=== PATIENT | female | born 1950 | race African-American/Black ===

== ENCOUNTER 2016-10-12 20:43 | Emergency (ER) | payer OTHER ==
[~2016-10-12] VITALS: Ht 162.6 cm; Wt 51.7 kg
[~2016-10-12 20:43] MED LIST: AMLO10TA2 PO; LEV250T PO; MULTCAP45 PO; OMEP20CA5 PO; PRED-188 PO; PRO25I PO; Pantoprazole Sodium Sesquihydr PO; TRIA37.577 PO
[2016-10-12 22:37] LABS: Basophils # (auto) 0 uL; Basophils % (auto) 0.4 % (0.0-2.0); DEFINITIVE VIEW TRANSMISSION; Eosinophils # (auto) 0.1 uL; Eosinophils % (auto) 0.9 % (0.0-7.0); Hematocrit 30.5 % (36.0-46.0); Hemoglobin 9.8 g/dL (12.2-16.2); Mean Corpuscular Hemoglobin 25.7 pg (28.0-32.0); Mean Corpuscular Volume 80.2 fL (80.0-100.0); Monocytes # (auto) 0.5 uL; Monocytes % (auto) 5.2 % (0.0-12.0); Neutrophils # (auto) 8.1 uL; Neutrophils % (auto) 83.5 % (37.0-80.0); Platelet Count (auto) 539 10^3/uL (140-450); White Blood Cell 9.7 10^3/uL (4.4-10.8)
[2016-10-12 22:45] LABS: Red Cell Distribution Width 21.4 % (11.6-16.0)
[2016-10-12 22:49] LABS: Albumin 1.9 g/dL (3.4-5.0); BUN/Creatinine Ratio 16.7; Bilirubin, Total 0.2 mg/dL (0.2-1.0); Magnesium 1.8 mg/dL (1.6-2.6); Potassium 4.2 mmol/L (3.5-5.1); Total Protein 7.4 g/dL (6.4-8.2)
[2016-10-12 22:54] LABS: B-Type Natriuretic Peptide 1393.16 pg/mL (0-100); Temperature: 23.5 C (20.0-25.0)
[2016-10-12] MEDS: FUROSEMIDE 20 MG/2 ML VIAL IV ONE (23:55)
[2016-10-13] MEDS: FUROSEMIDE 20 MG/2 ML VIAL IV ONE (00:10)
[2016-10-13 00:22] LABS: Anisocytosis Slight; Platelet Estimate Increased
[2016-10-13 00:59] VITALS: BP 123/76
== END 2016-10-13 01:04 | disposition home or self-care (01) ==
LOC: ER 22:00
DX: I11.0 Hypertensive heart disease with heart failure (principal); I50.9 Heart failure, unspecified; J84.10 Pulmonary fibrosis, unspecified; J44.9 Chronic obstructive pulmonary disease, unspecified; E11.9 Type 2 diabetes mellitus without complications; Z90.710 Acquired absence of both cervix and uterus
CPT/HCPCS: 36415; 71010; 80053; 83735; 83880; 84484; 85025; 93005; 94761

== ENCOUNTER 2016-10-22 17:45 | Inpatient (IN) | payer OTHER ==
[~2016-10-22] VITALS: Ht 162.6 cm; Wt 55.2 kg
[2016-10-22] MEDS ORDERED: MORPHINE SULF INJ 2 MG/ML SYRINGE 1ML IV PRN (18:15)
[2016-10-22] MEDS ORDERED: NITROGLYCERIN 0.4 MG SL TAB SL PRN (18:15)
[2016-10-22] MEDS ORDERED: DEXTROSE (50%) 50ML SYRG IV PRN (19:00)
[2016-10-22 19:13] VITALS: BP 130/87
[2016-10-22 20:00] VITALS: BP 117/60
[2016-10-22 22:00] VITALS: BP 117/70
[2016-10-22] MEDS: ACCU-CHEK COMFORT CURVE STRIP VI SCH (22:20)
[2016-10-22] MEDS: InsuLIN REG 1unit/0.01ml Soln (100units/ml) SC SCH (22:43)
[2016-10-22] MEDS ORDERED: TEMAZEPAM 15 MG CAP PO PRN (23:00)
[2016-10-23] VITALS (7 sets, daily range): BP systolic 116–132; BP diastolic 68–81
[2016-10-23] MEDS ORDERED: IPRATROPIUM BROM 0.5 MG/2.5ML INH SOL NEB ONE ×2 (01:00→04:00)
[2016-10-23] MEDS ORDERED: ALBUTEROL SULF 2.5 MG/0.5ML(0.5%) NEB SOLN NEB ONE ×2 (01:00→04:00)
[2016-10-23] MEDS ORDERED: IPRATROPIUM BROM 0.5 MG/2.5ML INH SOL NEB SCH ×3 (06:00→10:00)
[2016-10-23] MEDS ORDERED: ALBUTEROL SULF 2.5 MG/0.5ML(0.5%) NEB SOLN NEB SCH ×3 (06:00→10:00)
[2016-10-23] MEDS: ALBUTEROL SULF 2.5 MG/0.5ML(0.5%) NEB SOLN NEB SCH ×4 (06:11→19:35)
[2016-10-23] MEDS: IPRATROPIUM BROM 0.5 MG/2.5ML INH SOL NEB SCH ×4 (06:11→19:34)
[2016-10-23 06:14] LABS: Basophils # (auto) 0 uL; Basophils % (auto) 0.1 % (0.0-2.0); DEFINITIVE VIEW TRANSMISSION; Eosinophils # (auto) 0 uL; Hematocrit 30.5 % (36.0-46.0); Hemoglobin 9.9 g/dL (12.2-16.2); Lymphocytes % (auto) 12.2 % (10.0-50.0); Mean Corpuscular Hgb Conc. 32.3 g/dL (32.0-36.0); Mean Corpuscular Volume 80.3 fL (80.0-100.0); Mean Platelet Volume 7.1 fL (7.4-10.4); Monocytes # (auto) 0.6 uL; Neutrophils # (auto) 6.6 uL; Neutrophils % (auto) 80.7 % (37.0-80.0); Platelet Count (auto) 654 10^3/uL (140-450); White Blood Cell 8.2 10^3/uL (4.4-10.8)
[2016-10-23 06:31] LABS: Red Cell Distribution Width 20.5 % (11.6-16.0)
[2016-10-23] MEDS: InsuLIN REG 1unit/0.01ml Soln (100units/ml) SC SCH ×4 (06:31→22:01)
[2016-10-23] MEDS: ACCU-CHEK COMFORT CURVE STRIP VI SCH ×4 (06:31→21:20)
[2016-10-23 06:38] LABS: BUN/Creatinine Ratio 19.3; Calcium 8.1 mg/dL (8.5-10.1); Potassium 3.9 mmol/L (3.5-5.1)
[2016-10-23] MEDS: HYDROcodone-ACET 7.5/325MG TAB PO PRN ×3 (06:52→22:37)
[2016-10-23 09:16] LABS: Anisocytosis Slight; Hypochromia Slight; Platelet Estimate Increased
[2016-10-23 09:17] LABS: Giant Platelets Few
[2016-10-23] MEDS ORDERED: LEVOFLOXACIN 500MG 100 ML IV SCH (10:00)
[2016-10-23] MEDS: AZITHROMYCIN 500MG/D5W 250ML 250 ML IV SCH (11:45)
[2016-10-23] MEDS ORDERED: MORPHINE SULF INJ 2 MG/ML SYRINGE 1ML IV PRN (12:15)
[2016-10-23] MEDS ORDERED: ONDANSETRON HCL 4 MG/2 ML VIAL IV PRN (12:15)
[2016-10-23] MEDS ORDERED: predniSONE 20 MG TAB PO ONE (12:15)
[2016-10-23] MEDS ORDERED: cefTRIAXone 1GM/50ML D5W 50 ML IV ONE (12:15)
[2016-10-23] MEDS ORDERED: PRED1PAK9 PO (18:13)
[2016-10-23] MEDS: TEMAZEPAM 15 MG CAP PO PRN (23:09)
[2016-10-24] MEDS: ALBUTEROL SULF 2.5 MG/0.5ML(0.5%) NEB SOLN NEB SCH ×5 (02:27→19:31)
[2016-10-24] MEDS: IPRATROPIUM BROM 0.5 MG/2.5ML INH SOL NEB SCH ×5 (02:27→19:31)
[2016-10-24 05:00] VITALS: BP 118/76
[2016-10-24] MEDS: InsuLIN REG 1unit/0.01ml Soln (100units/ml) SC SCH ×4 (06:21→21:22)
[2016-10-24] MEDS: ACCU-CHEK COMFORT CURVE STRIP VI SCH ×4 (06:21→21:17)
[2016-10-24 08:00] VITALS: BP 140/93
[2016-10-24 09:00] VITALS: BP 140/93
[2016-10-24] MEDS: cefTRIAXone 1GM/50ML D5W 50 ML IV SCH (10:16)
[2016-10-24] MEDS: AZITHROMYCIN 500MG/D5W 250ML 250 ML IV SCH (10:17)
[2016-10-24] MEDS: predniSONE 20 MG TAB PO SCH (10:17)
[2016-10-24 12:53] VITALS: BP 138/87
[2016-10-24 17:00] VITALS: BP 154/96
[2016-10-24 22:00] VITALS: BP 138/74
[2016-10-24] MEDS: HYDROcodone-ACET 7.5/325MG TAB PO PRN (22:52)
[2016-10-24] MEDS: TEMAZEPAM 15 MG CAP PO PRN (23:49)
[2016-10-25 04:55] VITALS: BP 140/87
[2016-10-25] MEDS: IPRATROPIUM BROM 0.5 MG/2.5ML INH SOL NEB SCH ×3 (06:20→15:07)
[2016-10-25] MEDS: ALBUTEROL SULF 2.5 MG/0.5ML(0.5%) NEB SOLN NEB SCH ×3 (06:20→15:07)
[2016-10-25] MEDS: ACCU-CHEK COMFORT CURVE STRIP VI SCH ×2 (06:29→11:30)
[2016-10-25] MEDS: InsuLIN REG 1unit/0.01ml Soln (100units/ml) SC SCH ×2 (06:30→11:30)
[2016-10-25 09:00] VITALS: BP 136/87
[2016-10-25] MEDS: predniSONE 20 MG TAB PO SCH (09:27)
[2016-10-25] MEDS: cefTRIAXone 1GM/50ML D5W 50 ML IV SCH (09:27)
[2016-10-25] MEDS ORDERED: AZITHROMYCIN 250 MG TAB PO SCH (10:00)
[2016-10-25 13:40] VITALS: BP 135/79
[2016-10-25 14:34] VITALS: BP 136/87
== END 2016-10-25 16:05 | disposition home or self-care (01) | DRG 190 ==
LOC: EAST 17:45 → TELE-WESTW 20:15
PROVIDERS: ADMIT Family Medicine; ATTEND Internal Medicine
DX: J44.0 Chronic obstructive pulmonary disease with (acute) lower respiratory infection (principal); J96.20 Acute and chronic respiratory failure, unspecified whether with hypoxia or hypercapnia; E43 Unspecified severe protein-calorie malnutrition; J18.9 Pneumonia, unspecified organism; J44.1 Chronic obstructive pulmonary disease with (acute) exacerbation; E11.9 Type 2 diabetes mellitus without complications; J84.10 Pulmonary fibrosis, unspecified; Z68.20 Body mass index [BMI] 20.0-20.9, adult
CPT/HCPCS: 36415; 71010; 80048; 82962; 83036; 85025; 94640; 97110; 97116; 97530; J0696; J1815; J1956

== ENCOUNTER 2017-01-08 11:38 | Inpatient (IN) | payer OTHER ==
[~2017-01-08] VITALS: Ht 162.6 cm; Wt 42.5 kg
[~2017-01-08 11:38] MED LIST changes: -OMEP20CA5 PO; +OMEP20CA74 PO; -PRED-188 PO; +PRED1PAK9 PO
[2017-01-08 11:53] VITALS: BP 130/83
[2017-01-08] MEDS: BOOST PLUS 8 ounce PO SCH ×2 (12:00→18:08)
[2017-01-08] MEDS ORDERED: HCTZ 25 MG TAB PO ONE (12:00)
[2017-01-08] MEDS ORDERED: DEXTROSE (50%) 50ML SYRG IV PRN (12:00)
[2017-01-08] MEDS ORDERED: POTASSIUM CHL 10 Meq TABLET PO ONE (12:00)
[2017-01-08] MEDS: PANTOPRAZOLE 40 MG TAB PO SCH (13:27)
[2017-01-08] MEDS: MULTIPLE VITAMIN TAB PO SCH (13:27)
[2017-01-08] MEDS: ALBUTEROL SULF 2.5 MG/0.5ML(0.5%) NEB SOLN NEB SCH ×3 (14:35→23:00)
[2017-01-08] MEDS: IPRATROPIUM BROM 0.5 MG/2.5ML INH SOL NEB SCH ×3 (14:35→23:00)
[2017-01-08] MEDS: methylPREDNISolone SOD SUCC 40 MG/ML VL IV SCH ×2 (16:18→21:59)
[2017-01-08] MEDS: InsuLIN REG 1unit/0.01ml Soln (100units/ml) SC SCH ×2 (17:00→22:00)
[2017-01-08] MEDS: ACCU-CHEK COMFORT CURVE STRIP VI SCH ×2 (17:00→22:02)
[2017-01-08] MEDS: DOXYCYCLINE 100 MG TAB/CAP PO SCH (21:58)
[2017-01-08 22:00] VITALS: BP 115/66
[2017-01-08 22:58] LABS: Urine RBC None Seen /hpf (0 - 4)
[2017-01-08 23:06] LABS: Urine Bilirubin Negative (Negative); Urine Blood Negative /uL (Negative); Urine Color Yellow (Yellow); Urine Glucose Normal (Normal); Urine Hyaline Cast MOD /lpf (0 - 2); Urine Ketone Negative (Negative); Urine Mucus FEW (None Seen); Urine Nitrite Negative (Negative); Urine Squamous Epithelial Cell FEW /hpf (<5); Urine Urobilinogen Normal (Negative); Urine pH 5.5 (5.0-8.0)
[2017-01-08] MEDS: ZOLPIDEM TARTRATE 5 MG TAB PO PRN (23:06)
[2017-01-08] MEDS: HYDROcodone-ACET 5/325MG TAB PO PRN (23:06)
[2017-01-08 23:39] VITALS: BP 115/66
[2017-01-09 05:30] VITALS: BP 126/80
[2017-01-09] MEDS: ACCU-CHEK COMFORT CURVE STRIP VI SCH ×4 (06:22→22:08)
[2017-01-09] MEDS: InsuLIN REG 1unit/0.01ml Soln (100units/ml) SC SCH ×4 (06:22→22:00)
[2017-01-09] MEDS: methylPREDNISolone SOD SUCC 40 MG/ML VL IV SCH (06:22)
[2017-01-09 06:36] LABS: BUN/Creatinine Ratio 26.4; Calcium 7.9 mg/dL (8.5-10.1); Potassium 5.1 mmol/L (3.5-5.1)
[2017-01-09 06:48] LABS: B-Type Natriuretic Peptide 1374.48 pg/mL (0-100)
[2017-01-09 06:59] LABS: Temperature: 22.9 C (20.0-25.0)
[2017-01-09 07:13] LABS: Basophils # (auto) 0 uL; Basophils % (auto) 0.1 % (0.0-2.0); DEFINITIVE Y; Eosinophils # (auto) 0 uL; Hematocrit 33.9 % (36.0-46.0); Hemoglobin 10.6 g/dL (12.2-16.2); Lymphocytes # (auto) 0.4 uL; Lymphocytes % (auto) 3.6 % (10.0-50.0); Mean Corpuscular Hemoglobin 25.3 pg (28.0-32.0); Mean Corpuscular Hgb Conc. 31.3 g/dL (32.0-36.0); Mean Corpuscular Volume 80.8 fL (80.0-100.0); Mean Platelet Volume 7.4 fL (7.4-10.4); Monocytes # (auto) 0.2 uL; Monocytes % (auto) 1.5 % (0.0-12.0); Neutrophils # (auto) 11.7 uL; Neutrophils % (auto) 94.8 % (37.0-80.0); Platelet Count (auto) 566 10^3/uL (140-450); Red Cell Distribution Width 19.2 % (11.6-16.0); White Blood Cell 12.3 10^3/uL (4.4-10.8)
[2017-01-09] MEDS: IPRATROPIUM BROM 0.5 MG/2.5ML INH SOL NEB SCH ×5 (07:16→22:38)
[2017-01-09] MEDS: ALBUTEROL SULF 2.5 MG/0.5ML(0.5%) NEB SOLN NEB SCH ×5 (07:16→22:38)
[2017-01-09] MEDS: BOOST PLUS 8 ounce PO SCH ×3 (07:41→18:12)
[2017-01-09 09:00] VITALS: BP 144/97
[2017-01-09] MEDS ORDERED: POTASSIUM CHL 10 Meq TABLET PO SCH (10:00)
[2017-01-09] MEDS ORDERED: HCTZ 25 MG TAB PO SCH (10:00)
[2017-01-09] MEDS: DOXYCYCLINE 100 MG TAB/CAP PO SCH ×2 (10:46→22:09)
[2017-01-09] MEDS: MULTIPLE VITAMIN TAB PO SCH (10:48)
[2017-01-09] MEDS: PANTOPRAZOLE 40 MG TAB PO SCH (10:48)
[2017-01-09] MEDS ORDERED: FUROSEMIDE 40 MG/4 ML VIAL IV ONE (12:15)
[2017-01-09] MEDS ORDERED: POTASSIUM CHL 20 Meq TABLET PO ONE (12:15)
[2017-01-09 13:00] VITALS: BP 128/84
[2017-01-09 17:00] VITALS: BP 119/71
[2017-01-09] MEDS ORDERED: FER325T PO (18:57)
[2017-01-09] MEDS ORDERED: OXYB15TA12 PO (18:57)
[2017-01-09] MEDS ORDERED: TEMA30CA PO (18:57)
[2017-01-09 22:00] VITALS: BP 133/79
[2017-01-09] MEDS ORDERED: methylPREDNISolone SOD SUCC 40 MG/ML VL IV SCH (22:00)
[2017-01-09] MEDS: ZOLPIDEM TARTRATE 5 MG TAB PO PRN (22:10)
[2017-01-09] MEDS: HYDROcodone-ACET 5/325MG TAB PO PRN (22:11)
[2017-01-10] MEDS: IPRATROPIUM BROM 0.5 MG/2.5ML INH SOL NEB SCH ×5 (02:34→18:41)
[2017-01-10] MEDS: ALBUTEROL SULF 2.5 MG/0.5ML(0.5%) NEB SOLN NEB SCH ×5 (02:34→18:41)
[2017-01-10 05:00] VITALS: BP 145/90
[2017-01-10] MEDS: InsuLIN REG 1unit/0.01ml Soln (100units/ml) SC SCH ×4 (06:18→22:00)
[2017-01-10] MEDS: ACCU-CHEK COMFORT CURVE STRIP VI SCH ×4 (06:18→22:27)
[2017-01-10 06:45] LABS: Calcium 8.3 mg/dL (8.5-10.1); Magnesium 1.9 mg/dL (1.6-2.6); Potassium 4.7 mmol/L (3.5-5.1)
[2017-01-10 07:00] LABS: BUN/Creatinine Ratio 24.3
[2017-01-10] MEDS: BOOST PLUS 8 ounce PO SCH ×3 (07:20→17:05)
[2017-01-10 09:00] VITALS: BP 138/59
[2017-01-10] MEDS: FUROSEMIDE 40 MG/4 ML VIAL IV SCH (10:42)
[2017-01-10] MEDS: POTASSIUM CHL 20 Meq TABLET PO SCH (10:44)
[2017-01-10] MEDS: MULTIPLE VITAMIN TAB PO SCH (10:44)
[2017-01-10] MEDS ORDERED: predniSONE 20 MG TAB PO ONE (10:45)
[2017-01-10] MEDS: PANTOPRAZOLE 40 MG TAB PO SCH (10:45)
[2017-01-10] MEDS: DOXYCYCLINE 100 MG TAB/CAP PO SCH ×2 (10:45→22:25)
[2017-01-10] MEDS: MAGNESIUM SULFATE 1GM/100ML 100 ML IV SCH ×2 (12:10→12:26)
[2017-01-10 13:00] VITALS: BP 137/93
[2017-01-10 17:00] VITALS: BP 113/71
[2017-01-10 20:00] VITALS: BP 124/82
[2017-01-10 22:00] VITALS: BP 124/82
[2017-01-10] MEDS: HYDROcodone-ACET 5/325MG TAB PO PRN (22:40)
[2017-01-10] MEDS: ZOLPIDEM TARTRATE 5 MG TAB PO PRN (22:40)
[2017-01-11] MEDS: ALBUTEROL SULF 2.5 MG/0.5ML(0.5%) NEB SOLN NEB SCH ×4 (02:40→14:52)
[2017-01-11] MEDS: IPRATROPIUM BROM 0.5 MG/2.5ML INH SOL NEB SCH ×4 (02:40→14:52)
[2017-01-11 05:00] VITALS: BP 127/81
[2017-01-11] MEDS: InsuLIN REG 1unit/0.01ml Soln (100units/ml) SC SCH ×3 (06:55→17:00)
[2017-01-11] MEDS: ACCU-CHEK COMFORT CURVE STRIP VI SCH ×3 (06:56→17:00)
[2017-01-11 08:00] VITALS: BP 131/80
[2017-01-11 08:42] VITALS: BP 131/80
[2017-01-11] MEDS: BOOST PLUS 8 ounce PO SCH ×3 (09:24→18:52)
[2017-01-11] MEDS ORDERED: predniSONE 20 MG TAB PO SCH (10:00)
[2017-01-11] MEDS: PANTOPRAZOLE 40 MG TAB PO SCH (10:53)
[2017-01-11] MEDS: POTASSIUM CHL 20 Meq TABLET PO SCH (10:53)
[2017-01-11] MEDS: DOXYCYCLINE 100 MG TAB/CAP PO SCH (10:53)
[2017-01-11] MEDS: FUROSEMIDE 40 MG/4 ML VIAL IV SCH (10:53)
[2017-01-11] MEDS: MULTIPLE VITAMIN TAB PO SCH (10:54)
[2017-01-11 16:25] LABS: Allen Test Yes; Base Excess 11.7 mmol/L (-2.0-2.0); Blood 02Sat 73.2 % (96-100); Blood COHb 0.7 % (0.5-1.5); Blood MetHb 0.3 % (0.0-1.5); HCO3 35.9 mmol/L (22-26.0); HHb 26.5 % (0.0-5.0); MODE ROOM AIR; O2Hb 72.5 % (94.0-97.0); PCO2 44.8 mmHg (35.0-45.0); PCO2(T) 44.8 mmHg (35.0-45.0); PO2 37.8 mmHg (80.0-100.0); PO2(T) 37.8 mmHg (80.0-100.0); Room 0216T; Sample Type Arterial; pH 7.522 (7.350-7.450)
== END 2017-01-11 19:10 | disposition home or self-care (01) | DRG 291 ==
LOC: TELE-E-ADS 11:38 → TELE-CENTR 18:57
PROVIDERS: ADMIT Internal Medicine; ATTEND Internal Medicine
DX: I11.0 Hypertensive heart disease with heart failure (principal); E43 Unspecified severe protein-calorie malnutrition; J96.20 Acute and chronic respiratory failure, unspecified whether with hypoxia or hypercapnia; J18.9 Pneumonia, unspecified organism; Z68.1 Body mass index [BMI] 19.9 or less, adult; J84.10 Pulmonary fibrosis, unspecified; I50.33 Acute on chronic diastolic (congestive) heart failure; Z87.891 Personal history of nicotine dependence
CPT/HCPCS: 36415; 36600; 71010; 80048; 81001; 82805; 82962; 83735; 83880; 85025; 94640; 97116; 97163; 97530; J1815

== ENCOUNTER 2017-01-20 03:45 | Inpatient (IN) | payer OTHER ==
[~2017-01-20] VITALS: Ht 154.9 cm; Wt 66.0 kg
[~2017-01-20 03:45] MED LIST changes: +FER325T PO; +OXYB15TA12 PO; +TEMA30CA PO
[2017-01-20] MEDS ORDERED: methylPREDNISolone SOD SUCC 125 MG/2 ML VL IV ONE (04:45)
[2017-01-20 05:51] LABS: Allen Test Yes; Blood 02Sat 97.1 % (96-100); Blood COHb 0.3 % (0.5-1.5); Blood MetHb 0.3 % (0.0-1.5); HHb 2.9 % (0.0-5.0); MODE MASK - SIMPLE; O2Hb 96.5 % (94.0-97.0); PCO2 38.3 mmHg (35.0-45.0); PCO2(T) 38.3 mmHg (35.0-45.0); PO2 105.7 mmHg (80.0-100.0); PO2(T) 105.7 mmHg (80.0-100.0); Sample Type Arterial; pH 7.449 (7.350-7.450)
[2017-01-20] MEDS ORDERED: ALBUTEROL SULF 2.5 MG/0.5ML(0.5%) NEB SOLN NEB ONE (07:00)
[2017-01-20] MEDS ORDERED: SODIUM CHLORIDE 0.9% 1,000 ML IV ONE (07:00)
[2017-01-20] MEDS ORDERED: IPRATROPIUM BROM 0.5 MG/2.5ML INH SOL NEB ONE (07:00)
[2017-01-20 07:16] LABS: Basophils # (auto) 0 uL; Basophils % (auto) 0.2 % (0.0-2.0); CONDITION Y; DEFINITIVE SEE PRINTOUT; Eosinophils # (auto) 0.1 uL; Eosinophils % (auto) 0.4 % (0.0-7.0); Hemoglobin 11.3 g/dL (12.2-16.2); Lymphocytes # (auto) 1.4 uL; Lymphocytes % (auto) 8.4 % (10.0-50.0); Mean Corpuscular Hemoglobin 25.2 pg (28.0-32.0); Mean Corpuscular Hgb Conc. 32.3 g/dL (32.0-36.0); Mean Corpuscular Volume 77.9 fL (80.0-100.0); Mean Platelet Volume 7.5 fL (7.4-10.4); Monocytes # (auto) 0.8 uL; Monocytes % (auto) 5.1 % (0.0-12.0); Neutrophils # (auto) 13.9 uL; Neutrophils % (auto) 85.9 % (37.0-80.0); Platelet Count (auto) 620 10^3/uL (140-450); Red Cell Distribution Width 18.9 % (11.6-16.0); White Blood Cell 16.1 10^3/uL (4.4-10.8)
[2017-01-20 07:38] LABS: Albumin 2.4 g/dL (3.4-5.0); BUN/Creatinine Ratio 16.1; Calcium 8.4 mg/dL (8.5-10.1)
[2017-01-20 07:41] LABS: Bilirubin, Total 0.2 mg/dL (0.2-1.0); Total Protein 7.4 g/dL (6.4-8.2)
[2017-01-20 07:42] LABS: Magnesium 1.8 mg/dL (1.6-2.6); Potassium 4.1 mmol/L (3.5-5.1)
[2017-01-20] MEDS ORDERED: DEXTROSE (50%) 50ML SYRG IV PRN (15:45)
[2017-01-20] MEDS ORDERED: PROMETHAZINE HCL 25 MG/ML 1ML IV PRN (15:45)
[2017-01-20] MEDS ORDERED: ACETAMINOPHEN 500 MG TAB PO PRN (15:45)
[2017-01-20] MEDS ORDERED: TEMAZEPAM 15 MG CAP PO PRN (15:45)
[2017-01-20] MEDS ORDERED: HYDROcodone-ACET 5/325MG TAB PO PRN (15:45)
[2017-01-20] MEDS ORDERED: NITROGLYCERIN 0.4 MG SL TAB SL PRN (15:45)
[2017-01-20] MEDS ORDERED: MORPHINE SULF INJ 2 MG/ML SYRINGE 1ML IV PRN ×2 (15:45)
[2017-01-20] MEDS ORDERED: LORazepam 0.5 MG TAB PO PRN (15:45)
[2017-01-20] MEDS ORDERED: ALBUTEROL SULF 2.5 MG/0.5ML(0.5%) NEB SOLN NEB PRN (15:45)
[2017-01-20] MEDS ORDERED: LACTULOSE 20Gm/30ML SOLN PO PRN (15:45)
[2017-01-20 16:00] VITALS: BP 126/80
[2017-01-20] MEDS: ACCU-CHEK COMFORT CURVE STRIP VI SCH ×2 (17:13→22:08)
[2017-01-20] MEDS: SODIUM CHLORIDE 0.9% 1,000 ML IV SCH (17:13)
[2017-01-20] MEDS: InsuLIN REG 1unit/0.01ml Soln (100units/ml) SC SCH ×2 (17:17→22:00)
[2017-01-20] MEDS: methylPREDNISolone SOD SUCC 40 MG/ML VL IV SCH (18:00)
[2017-01-20] MEDS: OXYBUTYNIN CHL 5 MG TAB PO SCH (18:00)
[2017-01-20 18:10] VITALS: BP 131/81
[2017-01-20] MEDS: IPRATROPIUM BROM 0.5 MG/2.5ML INH SOL NEB SCH (20:41)
[2017-01-20] MEDS: ALBUTEROL SULF 2.5 MG/0.5ML(0.5%) NEB SOLN NEB SCH (20:41)
[2017-01-20 21:43] VITALS: BP 135/80
[2017-01-20] MEDS: ATORVASTATIN 20 MG TAB PO SCH (21:57)
[2017-01-20] MEDS: METOPROLOL TARTRATE 25 MG TAB PO SCH (21:57)
[2017-01-20] MEDS ORDERED: TEMAZEPAM 15 MG PO SCH (22:00)
[2017-01-21] VITALS (18 sets, daily range): BP systolic 92–126; BP diastolic 58–89
[2017-01-21] MEDS: methylPREDNISolone SOD SUCC 40 MG/ML VL IV SCH ×4 (00:07→20:25)
[2017-01-21] MEDS: IPRATROPIUM BROM 0.5 MG/2.5ML INH SOL NEB SCH ×4 (00:49→18:41)
[2017-01-21] MEDS: ALBUTEROL SULF 2.5 MG/0.5ML(0.5%) NEB SOLN NEB SCH ×4 (00:49→18:41)
[2017-01-21] MEDS: SODIUM CHLORIDE 0.9% 1,000 ML IV SCH ×3 (06:10→15:54)
[2017-01-21 06:12] LABS: Basophils # (auto) 0 uL; CONDITION Y; DEFINITIVE SEE PRINTOUT; Eosinophils # (auto) 0 uL; Hematocrit 32.6 % (36.0-46.0); Hemoglobin 10.4 g/dL (12.2-16.2); Lymphocytes # (auto) 0.6 uL; Lymphocytes % (auto) 5.1 % (10.0-50.0); Mean Corpuscular Hemoglobin 25.5 pg (28.0-32.0); Mean Corpuscular Volume 79.7 fL (80.0-100.0); Mean Platelet Volume 7.5 fL (7.4-10.4); Monocytes # (auto) 0.4 uL; Monocytes % (auto) 2.8 % (0.0-12.0); Neutrophils # (auto) 11.4 uL; Neutrophils % (auto) 92.1 % (37.0-80.0); Platelet Count (auto) 577 10^3/uL (140-450); Red Cell Distribution Width 19.2 % (11.6-16.0); White Blood Cell 12.4 10^3/uL (4.4-10.8)
[2017-01-21] MEDS: InsuLIN REG 1unit/0.01ml Soln (100units/ml) SC SCH ×4 (06:33→22:00)
[2017-01-21] MEDS: ACCU-CHEK COMFORT CURVE STRIP VI SCH ×4 (06:33→21:33)
[2017-01-21 06:44] LABS: Albumin 2.3 g/dL (3.4-5.0); BUN/Creatinine Ratio 20.3; Bilirubin, Total 0.2 mg/dL (0.2-1.0); Calcium 8.2 mg/dL (8.5-10.1); Potassium 4.4 mmol/L (3.5-5.1)
[2017-01-21] MEDS: OXYBUTYNIN CHL 5 MG TAB PO SCH (08:14)
[2017-01-21] MEDS: cefTRIAXone 1GM/50ML D5W 50 ML IV SCH (09:57)
[2017-01-21] MEDS: ENOXAPARIN SOD 40 MG/0.4 ML SYRINGE SC SCH (09:58)
[2017-01-21] MEDS ORDERED: NITROGLYCERIN 0.2MG/HR TOPICAL PATCH TD SCH (10:00)
[2017-01-21] MEDS ORDERED: amLODIPine BESYLATE 5 MG TAB PO SCH (10:00)
[2017-01-21] MEDS: FERROUS SULFATE 325 MG TAB PO SCH (10:00)
[2017-01-21] MEDS ORDERED: AZITHROMYCIN 500MG/D5W 250ML 250 ML IV SCH (10:00)
[2017-01-21] MEDS ORDERED: PATIENTS OWN MEDICATION (Amlodipine Besylate 10 MG) PO SCH (10:00)
[2017-01-21] MEDS ORDERED: PATIENTS OWN MEDICATION (Multiple Vitamin (Multivitamins) 1 CAP) PO SCH (10:00)
[2017-01-21] MEDS ORDERED: MULTIPLE VITAMIN TAB PO SCH (10:00)
[2017-01-21] MEDS ORDERED: PATIENTS OWN MEDICATION ([Pantoprazole Sodium Sesquihydr] (Protonix Tablet) 40 MG) PO SCH (10:00)
[2017-01-21] MEDS ORDERED: PANTOPRAZOLE 40 MG TAB PO SCH (10:00)
[2017-01-21] MEDS ORDERED: TRIAMTERENE/HCTZ 37.5/25 MG CAP PO SCH (10:00)
[2017-01-21] MEDS: ASPirin 81 mg TAB PO SCH (10:00)
[2017-01-21] MEDS: METOPROLOL TARTRATE 25 MG TAB PO SCH ×2 (10:01→21:33)
[2017-01-21 11:39] LABS: Base Excess -0.8 mmol/L (-2.0-2.0); Blood 02Sat 93.8 % (96-100); Blood COHb 0.3 % (0.5-1.5); Blood MetHb 0.3 % (0.0-1.5); HCO3 30.3 mmol/L (22-26.0); HHb 6.2 % (0.0-5.0); MODE AMBU BAG; O2Hb 93.2 % (94.0-97.0); PCO2 92.2 mmHg (35.0-45.0); PCO2(T) 92.2 mmHg (35.0-45.0); Room 0280T; Sample Type Arterial; pH 7.134 (7.350-7.450)
[2017-01-21 12:40] LABS: Base Excess -14.5 mmol/L (-2.0-2.0); Blood 02Sat 93.4 % (96-100); Blood COHb 0.3 % (0.5-1.5); Blood MetHb 0.4 % (0.0-1.5); HCO3 13.1 mmol/L (22-26.0); HHb 6.6 % (0.0-5.0); MODE VENT - A/C; O2Hb 92.7 % (94.0-97.0); PCO2 36.8 mmHg (35.0-45.0); PCO2(T) 36.8 mmHg (35.0-45.0); PIP 19; Room 0280T; Sample Type Arterial; pH 7.169 (7.350-7.450)
[2017-01-21] MEDS ORDERED: EPINEPHrine HCL 1 MG/10 ML SYRG IV ONE (14:29)
[2017-01-21] MEDS ORDERED: SODIUM BICARBONATE 8.4% INJ 50ML SYRINGE IV ONE (14:29)
[2017-01-21 15:11] LABS: Base Excess -5.1 mmol/L (-2.0-2.0); Blood COHb 0.3 % (0.5-1.5); Blood MetHb 0.3 % (0.0-1.5); HCO3 19.9 mmol/L (22-26.0); MODE AC; O2Hb 97.4 % (94.0-97.0); PCO2 36.9 mmHg (35.0-45.0); PCO2(T) 36.9 mmHg (35.0-45.0); PIP 24; Sample Type Arterial
[2017-01-21] MEDS: NOREPINEPHRINE BITARTRATE 250 ML IV SCH (18:00)
[2017-01-21] MEDS: fentaNYL Drip 2500mCg/250mlNS 250 ML IV SCH (18:00)
[2017-01-21] MEDS: PROPOFOL 100 ML IV SCH ×2 (18:00→21:00)
[2017-01-21] MEDS: ATORVASTATIN 20 MG TAB PO SCH (21:33)
[2017-01-22] VITALS (105 sets, daily range): BP systolic 70–159; BP diastolic 41–101
[2017-01-22] MEDS: methylPREDNISolone SOD SUCC 40 MG/ML VL IV SCH ×5 (00:29→23:47)
[2017-01-22 00:39] LABS: Basophils # (auto) 0.4 uL; Basophils % (auto) 1.2 % (0.0-2.0); DEFINITIVE SEE PRINTOUT; Eosinophils # (auto) 0 uL; Hematocrit 31.6 % (36.0-46.0); Hemoglobin 10.2 g/dL (12.2-16.2); Lymphocytes # (auto) 0.8 uL; Lymphocytes % (auto) 2.3 % (10.0-50.0); Mean Corpuscular Hemoglobin 25.4 pg (28.0-32.0); Mean Corpuscular Hgb Conc. 32.3 g/dL (32.0-36.0); Mean Corpuscular Volume 78.5 fL (80.0-100.0); Neutrophils % (auto) 93.5 % (37.0-80.0); Platelet Count (auto) 623 10^3/uL (140-450); Red Cell Distribution Width 17.9 % (11.6-16.0); SUSPECT SEE PRINTOUT
[2017-01-22] MEDS: IPRATROPIUM BROM 0.5 MG/2.5ML INH SOL NEB SCH ×4 (00:44→18:49)
[2017-01-22] MEDS: ALBUTEROL SULF 2.5 MG/0.5ML(0.5%) NEB SOLN NEB SCH ×4 (00:44→18:49)
[2017-01-22 00:46] LABS: White Blood Cell 33.2 10^3/uL (4.4-10.8)
[2017-01-22 01:02] LABS: Albumin 2.4 g/dL (3.4-5.0); BUN/Creatinine Ratio 19.1; Calcium 7.8 mg/dL (8.5-10.1)
[2017-01-22 01:05] LABS: Bilirubin, Total 0.2 mg/dL (0.2-1.0); Phosphorus 2.9 mg/dL (2.5-4.90)
[2017-01-22] MEDS: NOREPINEPHRINE BITARTRATE 250 ML IV SCH (05:13)
[2017-01-22 06:01] LABS: CONDITION Y; DEFINITIVE SEE PRINTOUT; Hematocrit 30.1 % (36.0-46.0); Hemoglobin 9.6 g/dL (12.2-16.2); Mean Corpuscular Hemoglobin 25.2 pg (28.0-32.0); Mean Corpuscular Volume 78.7 fL (80.0-100.0); Mean Platelet Volume 6.9 fL (7.4-10.4); Platelet Count (auto) 566 10^3/uL (140-450); Red Cell Distribution Width 19.4 % (11.6-16.0); SUSPECT SEE PRINTOUT; White Blood Cell 23.3 10^3/uL (4.4-10.8)
[2017-01-22 06:18] LABS: BUN/Creatinine Ratio 22.7; Calcium 8.2 mg/dL (8.5-10.1); Magnesium 2.1 mg/dL (1.6-2.6); Potassium 3.8 mmol/L (3.5-5.1)
[2017-01-22 06:21] LABS: Metamyelocytes % 0; Myelocytes % 0; Promyelocytes % 0; Reactive Lymphocytes 0
[2017-01-22] MEDS: InsuLIN REG 1unit/0.01ml Soln (100units/ml) SC SCH ×4 (06:32→22:19)
[2017-01-22] MEDS: ACCU-CHEK COMFORT CURVE STRIP VI SCH ×4 (06:32→22:19)
[2017-01-22] MEDS: SODIUM CHLORIDE 0.9% 1,000 ML IV SCH ×2 (06:36→23:49)
[2017-01-22 07:12] LABS: Allen Test Yes; Base Excess -1.5 mmol/L (-2.0-2.0); Blood 02Sat 91.8 % (96-100); Blood COHb 0.3 % (0.5-1.5); Blood MetHb 0.2 % (0.0-1.5); HCO3 24.3 mmol/L (22-26.0); HHb 8.2 % (0.0-5.0); MODE VENT - A/C; O2Hb 91.3 % (94.0-97.0); PCO2 45.2 mmHg (35.0-45.0); PCO2(T) 45.2 mmHg (35.0-45.0); PO2 76.3 mmHg (80.0-100.0); PO2(T) 76.3 mmHg (80.0-100.0); Sample Type Arterial; pH 7.348 (7.350-7.450)
[2017-01-22 07:22] LABS: Urine Bilirubin Negative (Negative); Urine Color Yellow (Yellow); Urine Glucose Normal (Normal); Urine Ketone Negative (Negative); Urine Nitrite Negative (Negative); Urine RBC 2 /hpf (0 - 4); Urine Squamous Epithelial Cell FEW /hpf (<5); Urine Urobilinogen Normal (Negative)
[2017-01-22 07:25] LABS: Urine Blood 1+ /uL (Negative)
[2017-01-22] MEDS: PROPOFOL 100 ML IV SCH ×2 (07:27→17:56)
[2017-01-22 07:40] LABS: Anisocytosis Slight; Hypersegmented Neutrophils Present; Hypochromia Slight; Ovalocytes FEW; Platelet Estimate Increased
[2017-01-22] MEDS: cefTRIAXone 1GM/50ML D5W 50 ML IV SCH (08:58)
[2017-01-22] MEDS ORDERED: VANCOMYCIN 1GM/250ML D5W 250 ML IV ONE (10:00)
[2017-01-22] MEDS: PANTOPRAZOLE SODIUM 40 MG/10 ML VIAL IV SCH (10:00)
[2017-01-22] MEDS: METOPROLOL TARTRATE 25 MG TAB PO SCH (10:00)
[2017-01-22] MEDS: ASPirin 81 mg TAB PO SCH (10:01)
[2017-01-22] MEDS: FERROUS SULFATE 325 MG TAB PO SCH (10:01)
[2017-01-22] MEDS: ENOXAPARIN SOD 40 MG/0.4 ML SYRINGE SC SCH (10:01)
[2017-01-22] MEDS: fentaNYL Drip 2500mCg/250mlNS 250 ML IV SCH (10:01)
[2017-01-22] MEDS: MUPIROCIN 2% OINT 22GM EACHNOSTRI SCH ×2 (10:18→22:18)
[2017-01-22] MEDS: PIPERACILLIN-TAZOB 3.375GM 100 ML IV SCH ×3 (11:49→23:50)
[2017-01-22] MEDS ORDERED: VANCOMYCIN PER PHARMACY 0 MG IV SCH (14:15)
[2017-01-22 15:40] LABS: Allen Test Yes; Base Excess 1.6 mmol/L (-2.0-2.0); Blood 02Sat 97.5 % (96-100); Blood COHb 0.3 % (0.5-1.5); Blood MetHb 0.1 % (0.0-1.5); HCO3 25.9 mmol/L (22-26.0); HHb 2.5 % (0.0-5.0); MODE VENT - A/C; O2Hb 97.1 % (94.0-97.0); PCO2 39.4 mmHg (35.0-45.0); PCO2(T) 39.4 mmHg (35.0-45.0); PO2 114.7 mmHg (80.0-100.0); PO2(T) 114.7 mmHg (80.0-100.0); Sample Type Arterial; pH 7.435 (7.350-7.450)
[2017-01-22] MEDS: ATORVASTATIN 20 MG TAB PO SCH (22:19)
[2017-01-23] VITALS (99 sets, daily range): BP systolic 82–141; BP diastolic 16–89
[2017-01-23] MEDS: IPRATROPIUM BROM 0.5 MG/2.5ML INH SOL NEB SCH ×4 (00:35→18:49)
[2017-01-23] MEDS: ALBUTEROL SULF 2.5 MG/0.5ML(0.5%) NEB SOLN NEB SCH ×4 (00:36→18:49)
[2017-01-23 03:56] LABS: CONDITION Y; DEFINITIVE SEE PRINTOUT; Hematocrit 30.8 % (36.0-46.0); Hemoglobin 9.7 g/dL (12.2-16.2); Mean Corpuscular Hemoglobin 25.2 pg (28.0-32.0); Mean Corpuscular Hgb Conc. 31.4 g/dL (32.0-36.0); Mean Corpuscular Volume 80.4 fL (80.0-100.0); Mean Platelet Volume 7.2 fL (7.4-10.4); Platelet Count (auto) 544 10^3/uL (140-450); SUSPECT SEE PRINTOUT; White Blood Cell 23.7 10^3/uL (4.4-10.8)
[2017-01-23 04:13] LABS: Albumin 2.3 g/dL (3.4-5.0); Magnesium 1.9 mg/dL (1.6-2.6)
[2017-01-23 04:16] LABS: Bilirubin, Total 0.2 mg/dL (0.2-1.0); Total Protein 6.5 g/dL (6.4-8.2)
[2017-01-23 05:03] LABS: Metamyelocytes % 0; Myelocytes % 0; Promyelocytes % 0; Reactive Lymphocytes 0
[2017-01-23] MEDS: PIPERACILLIN-TAZOB 3.375GM 100 ML IV SCH ×3 (06:02→17:06)
[2017-01-23] MEDS: PROPOFOL 100 ML IV SCH (06:03)
[2017-01-23 06:08] LABS: Hypersegmented Neutrophils Present
[2017-01-23 06:13] LABS: Anisocytosis Slight; Hypochromia Slight; Platelet Estimate Increased
[2017-01-23 06:14] LABS: Ovalocytes FEW
[2017-01-23] MEDS: methylPREDNISolone SOD SUCC 40 MG/ML VL IV SCH ×3 (06:33→17:06)
[2017-01-23] MEDS: ACCU-CHEK COMFORT CURVE STRIP VI SCH ×4 (06:34→22:00)
[2017-01-23] MEDS: InsuLIN REG 1unit/0.01ml Soln (100units/ml) SC SCH ×4 (06:34→22:15)
[2017-01-23 07:39] LABS: Allen Test Yes; Base Excess -0.4 mmol/L (-2.0-2.0); Blood 02Sat 85.3 % (96-100); Blood COHb 0.2 % (0.5-1.5); Blood MetHb 0.1 % (0.0-1.5); HCO3 25.3 mmol/L (22-26.0); HHb 14.7 % (0.0-5.0); MODE VENT - A/C; PCO2 46.4 mmHg (35.0-45.0); PCO2(T) 46.4 mmHg (35.0-45.0); PO2 58.4 mmHg (80.0-100.0); PO2(T) 58.4 mmHg (80.0-100.0); Sample Type Arterial; pH 7.355 (7.350-7.450)
[2017-01-23] MEDS ORDERED: VANCOMYCIN 500 MG in D5W 5% 100 ML IV SCH (10:00)
[2017-01-23] MEDS: ENOXAPARIN SOD 40 MG/0.4 ML SYRINGE SC SCH (10:24)
[2017-01-23] MEDS: ASPirin 81 mg TAB PO SCH (10:24)
[2017-01-23] MEDS: PANTOPRAZOLE SODIUM 40 MG/10 ML VIAL IV SCH (10:24)
[2017-01-23] MEDS: MUPIROCIN 2% OINT 22GM EACHNOSTRI SCH ×2 (10:25→22:00)
[2017-01-23] MEDS: FERROUS SULFATE 325 MG TAB PO SCH (10:25)
[2017-01-23] MEDS ORDERED: MAGNESIUM SULFATE 1GM/100ML 100 ML IV ONE (10:30)
[2017-01-23] MEDS: NOREPINEPHRINE BITARTRATE 250 ML IV SCH (12:15)
[2017-01-23] MEDS ORDERED: Diabetisource AC 1 Liter GT SCH (14:30)
[2017-01-23] MEDS: Diabetisource AC 1 Liter GT SCH (16:00)
[2017-01-23] MEDS: fentaNYL Drip 2500mCg/250mlNS 250 ML IV SCH (16:01)
[2017-01-23] MEDS: LINEZOLID 600MG/300ML 300 ML IV SCH (22:00)
[2017-01-23] MEDS: ATORVASTATIN 20 MG TAB PO SCH (22:00)
[2017-01-24] VITALS (101 sets, daily range): BP systolic 70–196; BP diastolic 18–125
[2017-01-24] MEDS: PIPERACILLIN-TAZOB 3.375GM 100 ML IV SCH ×5 (06:00→23:22)
[2017-01-24] MEDS: methylPREDNISolone SOD SUCC 40 MG/ML VL IV SCH ×5 (06:00→23:22)
[2017-01-24] MEDS: IPRATROPIUM BROM 0.5 MG/2.5ML INH SOL NEB SCH ×3 (06:32→18:45)
[2017-01-24] MEDS: ALBUTEROL SULF 2.5 MG/0.5ML(0.5%) NEB SOLN NEB SCH ×3 (06:32→18:45)
[2017-01-24 06:37] LABS: Albumin 2.2 g/dL (3.4-5.0); BUN/Creatinine Ratio 22.2; Bilirubin, Total 0.2 mg/dL (0.2-1.0); Calcium 8.2 mg/dL (8.5-10.1); Magnesium 2.1 mg/dL (1.6-2.6); Potassium 3.9 mmol/L (3.5-5.1); Total Protein 6.4 g/dL (6.4-8.2)
[2017-01-24] MEDS: ACCU-CHEK COMFORT CURVE STRIP VI SCH ×4 (07:23→22:42)
[2017-01-24] MEDS: InsuLIN REG 1unit/0.01ml Soln (100units/ml) SC SCH ×4 (07:23→23:01)
[2017-01-24] MEDS: PROPOFOL 100 ML IV SCH (07:24)
[2017-01-24 08:28] LABS: Basophils # (auto) 0 uL; Eosinophils # (auto) 0 uL; Hematocrit 31.3 % (36.0-46.0); Hemoglobin 9.9 g/dL (12.2-16.2); Lymphocytes # (auto) 0.3 uL; Lymphocytes % (auto) 1.2 % (10.0-50.0); Mean Corpuscular Hemoglobin 25.2 pg (28.0-32.0); Mean Corpuscular Hgb Conc. 31.5 g/dL (32.0-36.0); Monocytes # (auto) 0.4 uL; Monocytes % (auto) 2.1 % (0.0-12.0); Neutrophils % (auto) 96.7 % (37.0-80.0); Platelet Count (auto) 446 10^3/uL (140-450); Red Cell Distribution Width 21.1 % (11.6-16.0); White Blood Cell 20.7 10^3/uL (4.4-10.8)
[2017-01-24 08:53] LABS: Allen Test Yes; Base Excess 0.5 mmol/L (-2.0-2.0); Blood 02Sat 94.7 % (96-100); Blood COHb 0.5 % (0.5-1.5); Blood MetHb 0.1 % (0.0-1.5); HCO3 26.2 mmol/L (22-26.0); HHb 5.3 % (0.0-5.0); MODE VENT - A/C; O2Hb 94.1 % (94.0-97.0); PCO2 47.2 mmHg (35.0-45.0); PCO2(T) 47.2 mmHg (35.0-45.0); PO2 86.8 mmHg (80.0-100.0); PO2(T) 86.8 mmHg (80.0-100.0); Sample Type Arterial; pH 7.363 (7.350-7.450)
[2017-01-24] MEDS: LINEZOLID 600MG/300ML 300 ML IV SCH ×2 (09:20→23:01)
[2017-01-24] MEDS: ASPirin 81 mg TAB PO SCH (09:20)
[2017-01-24] MEDS: FERROUS SULFATE 325 MG TAB PO SCH (09:20)
[2017-01-24] MEDS: ENOXAPARIN SOD 40 MG/0.4 ML SYRINGE SC SCH (09:20)
[2017-01-24] MEDS: PANTOPRAZOLE SODIUM 40 MG/10 ML VIAL IV SCH (09:20)
[2017-01-24] MEDS: MUPIROCIN 2% OINT 22GM EACHNOSTRI SCH ×2 (09:21→23:00)
[2017-01-24] MEDS: NOREPINEPHRINE BITARTRATE 250 ML IV SCH (12:15)
[2017-01-24] MEDS: METOPROLOL TARTRATE 1MG/1ML-5ML VIAL IV PRN (14:21)
[2017-01-24] MEDS ORDERED: LORazepam 2MG/ML-1ML VIAL IM ONE (15:00)
[2017-01-24] MEDS: fentaNYL Drip 2500mCg/250mlNS 250 ML IV SCH (15:55)
[2017-01-24] MEDS ORDERED: LORazepam 2MG/ML-1ML VIAL IV ONE (17:30)
[2017-01-24] MEDS: ATORVASTATIN 20 MG TAB PO SCH (23:02)
[2017-01-25] VITALS (81 sets, daily range): BP systolic 96–191; BP diastolic 32–121
[2017-01-25] MEDS: ALBUTEROL SULF 2.5 MG/0.5ML(0.5%) NEB SOLN NEB SCH ×4 (01:00→19:02)
[2017-01-25] MEDS: IPRATROPIUM BROM 0.5 MG/2.5ML INH SOL NEB SCH ×4 (01:00→19:02)
[2017-01-25 03:40] LABS: CONDITION Y; DEFINITIVE SEE PRINTOUT; Hematocrit 31.1 % (36.0-46.0); Mean Corpuscular Hemoglobin 25.4 pg (28.0-32.0); Mean Corpuscular Hgb Conc. 32.1 g/dL (32.0-36.0); Mean Corpuscular Volume 79.2 fL (80.0-100.0); Mean Platelet Volume 7.6 fL (7.4-10.4); Platelet Count (auto) 404 10^3/uL (140-450); SUSPECT SEE PRINTOUT; White Blood Cell 18.8 10^3/uL (4.4-10.8)
[2017-01-25 04:05] LABS: BUN/Creatinine Ratio 25.9; Calcium 8.1 mg/dL (8.5-10.1); Potassium 3.6 mmol/L (3.5-5.1)
[2017-01-25 04:39] LABS: Red Cell Distribution Width 20.9 % (11.6-16.0)
[2017-01-25 04:40] LABS: Metamyelocytes % 0; Myelocytes % 0; Promyelocytes % 0; Reactive Lymphocytes 0
[2017-01-25 05:19] LABS: Anisocytosis Slight; Hypersegmented Neutrophils Present; Platelet Estimate Adequate
[2017-01-25] MEDS: PIPERACILLIN-TAZOB 3.375GM 100 ML IV SCH (06:00)
[2017-01-25] MEDS: methylPREDNISolone SOD SUCC 40 MG/ML VL IV SCH ×3 (06:00→22:00)
[2017-01-25] MEDS: ACCU-CHEK COMFORT CURVE STRIP VI SCH ×4 (07:00→22:00)
[2017-01-25] MEDS: InsuLIN REG 1unit/0.01ml Soln (100units/ml) SC SCH ×4 (07:00→22:00)
[2017-01-25] MEDS: ASPirin 81 mg TAB PO SCH (10:23)
[2017-01-25] MEDS: FERROUS SULFATE 325 MG TAB PO SCH (10:23)
[2017-01-25] MEDS: LINEZOLID 600MG/300ML 300 ML IV SCH ×2 (10:23→22:00)
[2017-01-25] MEDS: PANTOPRAZOLE SODIUM 40 MG/10 ML VIAL IV SCH (10:23)
[2017-01-25] MEDS: ENOXAPARIN SOD 40 MG/0.4 ML SYRINGE SC SCH (10:23)
[2017-01-25] MEDS: MUPIROCIN 2% OINT 22GM EACHNOSTRI SCH ×2 (10:23→22:00)
[2017-01-25 10:52] LABS: Allen Test Modified; Blood 02Sat 96.2 % (96-100); Blood COHb 0.3 % (0.5-1.5); Blood MetHb 0.2 % (0.0-1.5); HCO3 26.5 mmol/L (22-26.0); HHb 3.8 % (0.0-5.0); MODE VENT - A/C; O2Hb 95.7 % (94.0-97.0); PCO2 40.7 mmHg (35.0-45.0); PCO2(T) 40.7 mmHg (35.0-45.0); PIP 33; PO2 90.2 mmHg (80.0-100.0); PO2(T) 90.2 mmHg (80.0-100.0); Sample Type Arterial; pH 7.431 (7.350-7.450)
[2017-01-25] MEDS: NOREPINEPHRINE BITARTRATE 250 ML IV SCH (12:15)
[2017-01-25] MEDS ORDERED: MEROPENEM 1GM IVPB 100 ML IV ONE (12:15)
[2017-01-25] MEDS: DEXMEDETOMIDINE HCL 400 MCG in SODIUM CHL 0.9% 96 ML IV SCH (14:00)
[2017-01-25] MEDS: METOCLOPRAMIDE HCL 5MG/ml INJ 2ml VIAL IV PRN (14:03)
[2017-01-25] MEDS: MEROPENEM 1GM IVPB 100 ML IV SCH ×2 (14:05→20:00)
[2017-01-25] MEDS: PROPOFOL 100 ML IV SCH ×3 (14:09→18:51)
[2017-01-25] MEDS: fentaNYL Drip 2500mCg/250mlNS 250 ML IV SCH (18:51)
[2017-01-25] MEDS: ATORVASTATIN 20 MG TAB PO SCH (22:00)
[2017-01-26] VITALS (102 sets, daily range): BP systolic 90–200; BP diastolic 36–126
[2017-01-26] MEDS: ALBUTEROL SULF 2.5 MG/0.5ML(0.5%) NEB SOLN NEB SCH ×4 (00:13→19:00)
[2017-01-26] MEDS: IPRATROPIUM BROM 0.5 MG/2.5ML INH SOL NEB SCH ×4 (00:13→19:00)
[2017-01-26] MEDS: MEROPENEM 1GM IVPB 100 ML IV SCH ×3 (04:00→20:23)
[2017-01-26 04:17] LABS: Basophils # (auto) 0 uL; CONDITION Y; DEFINITIVE SEE PRINTOUT; Eosinophils # (auto) 0 uL; Hematocrit 33.6 % (36.0-46.0); Hemoglobin 10.9 g/dL (12.2-16.2); Lymphocytes # (auto) 0.3 uL; Lymphocytes % (auto) 1.8 % (10.0-50.0); Mean Corpuscular Hemoglobin 25.3 pg (28.0-32.0); Mean Corpuscular Hgb Conc. 32.4 g/dL (32.0-36.0); Mean Corpuscular Volume 78.2 fL (80.0-100.0); Mean Platelet Volume 7.8 fL (7.4-10.4); Monocytes # (auto) 0.4 uL; Monocytes % (auto) 2.4 % (0.0-12.0); Neutrophils # (auto) 15.1 uL; Neutrophils % (auto) 95.8 % (37.0-80.0); Platelet Count (auto) 413 10^3/uL (140-450); SUSPECT SEE PRINTOUT; White Blood Cell 15.7 10^3/uL (4.4-10.8)
[2017-01-26 04:22] LABS: Red Cell Distribution Width 20.2 % (11.6-16.0)
[2017-01-26 04:43] LABS: BUN/Creatinine Ratio 27.9; Calcium 8.3 mg/dL (8.5-10.1); Magnesium 2.1 mg/dL (1.6-2.6); Potassium 3.2 mmol/L (3.5-5.1)
[2017-01-26] MEDS: methylPREDNISolone SOD SUCC 40 MG/ML VL IV SCH ×3 (06:00→21:54)
[2017-01-26] MEDS: InsuLIN REG 1unit/0.01ml Soln (100units/ml) SC SCH ×4 (07:14→22:00)
[2017-01-26] MEDS: ACCU-CHEK COMFORT CURVE STRIP VI SCH ×4 (07:14→22:08)
[2017-01-26 08:01] LABS: Allen Test Modified; Base Excess 5.9 mmol/L (-2.0-2.0); Blood 02Sat 97.2 % (96-100); Blood COHb 0.6 % (0.5-1.5); Blood MetHb 0.1 % (0.0-1.5); HHb 2.8 % (0.0-5.0); MODE VENT - A/C; O2Hb 96.5 % (94.0-97.0); PCO2 32.4 mmHg (35.0-45.0); PCO2(T) 32.4 mmHg (35.0-45.0); PIP 29; PO2 97.4 mmHg (80.0-100.0); PO2(T) 97.4 mmHg (80.0-100.0); Sample Type Arterial; pH 7.555 (7.350-7.450)
[2017-01-26 08:24] LABS: Anisocytosis Slight; Platelet Estimate Adequate
[2017-01-26] MEDS: ASPirin 81 mg TAB PO SCH (09:56)
[2017-01-26] MEDS: MUPIROCIN 2% OINT 22GM EACHNOSTRI SCH ×2 (09:56→21:54)
[2017-01-26] MEDS: FERROUS SULFATE 325 MG TAB PO SCH (09:56)
[2017-01-26] MEDS: ENOXAPARIN SOD 40 MG/0.4 ML SYRINGE SC SCH (09:56)
[2017-01-26] MEDS: PANTOPRAZOLE SODIUM 40 MG/10 ML VIAL IV SCH (09:56)
[2017-01-26] MEDS: LINEZOLID 600MG/300ML 300 ML IV SCH ×2 (09:56→21:54)
[2017-01-26 10:31] LABS: Allen Test Yes; Base Excess 4.9 mmol/L (-2.0-2.0); Blood 02Sat 96.9 % (96-100); Blood COHb 0.8 % (0.5-1.5); Blood MetHb 0.2 % (0.0-1.5); HCO3 28.2 mmol/L (22-26.0); HHb 3.1 % (0.0-5.0); MODE VENT - A/C; O2Hb 95.9 % (94.0-97.0); PCO2 37.4 mmHg (35.0-45.0); PCO2(T) 37.4 mmHg (35.0-45.0); PO2 91.7 mmHg (80.0-100.0); PO2(T) 91.7 mmHg (80.0-100.0); Sample Type Arterial; pH 7.496 (7.350-7.450)
[2017-01-26] MEDS: NOREPINEPHRINE BITARTRATE 250 ML IV SCH (12:15)
[2017-01-26] MEDS: DEXMEDETOMIDINE HCL 400 MCG in SODIUM CHL 0.9% 96 ML IV SCH (13:01)
[2017-01-26] MEDS: METOPROLOL TARTRATE 1MG/1ML-5ML VIAL IV PRN (13:36)
[2017-01-26] MEDS: fentaNYL Drip 2500mCg/250mlNS 250 ML IV SCH (15:55)
[2017-01-26] MEDS: ATORVASTATIN 20 MG TAB PO SCH (21:55)
[2017-01-27] VITALS (94 sets, daily range): BP systolic 89–162; BP diastolic 52–108
[2017-01-27] MEDS: ALBUTEROL SULF 2.5 MG/0.5ML(0.5%) NEB SOLN NEB SCH ×4 (00:31→19:07)
[2017-01-27] MEDS: IPRATROPIUM BROM 0.5 MG/2.5ML INH SOL NEB SCH ×4 (00:31→19:07)
[2017-01-27] MEDS: MEROPENEM 1GM IVPB 100 ML IV SCH ×3 (04:09→20:22)
[2017-01-27] MEDS: methylPREDNISolone SOD SUCC 40 MG/ML VL IV SCH ×3 (05:18→21:15)
[2017-01-27] MEDS: InsuLIN REG 1unit/0.01ml Soln (100units/ml) SC SCH ×4 (06:52→21:38)
[2017-01-27] MEDS: ACCU-CHEK COMFORT CURVE STRIP VI SCH ×4 (06:52→21:38)
[2017-01-27 07:14] LABS: Allen Test Modified; Base Excess 4.8 mmol/L (-2.0-2.0); Blood 02Sat 94.6 % (96-100); Blood COHb 0.8 % (0.5-1.5); Blood MetHb 0.2 % (0.0-1.5); HCO3 30.2 mmol/L (22-26.0); HHb 5.3 % (0.0-5.0); MODE VENT - A/C; O2Hb 93.7 % (94.0-97.0); PO2 80.5 mmHg (80.0-100.0); PO2(T) 80.5 mmHg (80.0-100.0); Sample Type Arterial; pH 7.416 (7.350-7.450)
[2017-01-27] MEDS: PROPOFOL 100 ML IV SCH (08:00)
[2017-01-27 09:16] LABS: BUN/Creatinine Ratio 29.2
[2017-01-27 09:44] LABS: CONDITION Y; DEFINITIVE SEE PRINTOUT; Hematocrit 34.9 % (36.0-46.0); Hemoglobin 11.3 g/dL (12.2-16.2); Mean Corpuscular Hemoglobin 25.4 pg (28.0-32.0); Mean Corpuscular Hgb Conc. 32.3 g/dL (32.0-36.0); Mean Corpuscular Volume 78.5 fL (80.0-100.0); Mean Platelet Volume 8.2 fL (7.4-10.4); Platelet Count (auto) 174 10^3/uL (140-450); SUSPECT SEE PRINTOUT; White Blood Cell 16.3 10^3/uL (4.4-10.8)
[2017-01-27 09:46] LABS: Red Cell Distribution Width 20.7 % (11.6-16.0)
[2017-01-27 09:47] LABS: Metamyelocytes % 0; Myelocytes % 0; Promyelocytes % 0; Reactive Lymphocytes 0
[2017-01-27 10:00] LABS: Anisocytosis Slight; Platelet Estimate Adequate
[2017-01-27] MEDS: LINEZOLID 600MG/300ML 300 ML IV SCH ×2 (10:20→21:16)
[2017-01-27] MEDS: ENOXAPARIN SOD 40 MG/0.4 ML SYRINGE SC SCH (10:20)
[2017-01-27] MEDS: ASPirin 81 mg TAB PO SCH (10:20)
[2017-01-27] MEDS: FERROUS SULFATE 325 MG TAB PO SCH (10:20)
[2017-01-27] MEDS: PANTOPRAZOLE SODIUM 40 MG/10 ML VIAL IV SCH (10:20)
[2017-01-27] MEDS ORDERED: SODIUM CHLORIDE 0.9% 500 ML IV ONE (11:15)
[2017-01-27] MEDS ORDERED: SODIUM CHLORIDE 0.9% 1,000 ML IV SCH (11:15)
[2017-01-27] MEDS ORDERED: SODIUM CHLORIDE 0.9% 500 ML IV PRN (11:30)
[2017-01-27] MEDS: NOREPINEPHRINE BITARTRATE 250 ML IV SCH (12:15)
[2017-01-27] MEDS: DEXMEDETOMIDINE HCL 400 MCG in SODIUM CHL 0.9% 96 ML IV SCH (13:01)
[2017-01-27 14:24] LABS: B-Type Natriuretic Peptide 857.94 pg/mL (0-100)
[2017-01-27 14:27] LABS: Temperature: 21.9 C (20.0-25.0)
[2017-01-27] MEDS: fentaNYL Drip 2500mCg/250mlNS 250 ML IV SCH (16:30)
[2017-01-27] MEDS: ATORVASTATIN 20 MG TAB PO SCH (21:37)
[2017-01-28] VITALS (100 sets, daily range): BP systolic 87–191; BP diastolic 49–115
[2017-01-28] MEDS: IPRATROPIUM BROM 0.5 MG/2.5ML INH SOL NEB SCH ×4 (00:37→18:27)
[2017-01-28] MEDS: ALBUTEROL SULF 2.5 MG/0.5ML(0.5%) NEB SOLN NEB SCH ×4 (00:37→18:27)
[2017-01-28] MEDS: MEROPENEM 1GM IVPB 100 ML IV SCH (04:00)
[2017-01-28] MEDS: methylPREDNISolone SOD SUCC 40 MG/ML VL IV SCH ×3 (05:40→22:12)
[2017-01-28] MEDS: ACCU-CHEK COMFORT CURVE STRIP VI SCH ×4 (07:00→22:14)
[2017-01-28] MEDS: InsuLIN REG 1unit/0.01ml Soln (100units/ml) SC SCH ×4 (07:00→22:14)
[2017-01-28 07:12] LABS: Base Excess 2.4 mmol/L (-2.0-2.0); Blood 02Sat 95.9 % (96-100); Blood COHb 0.7 % (0.5-1.5); Blood MetHb 0.2 % (0.0-1.5); HCO3 27.3 mmol/L (22-26.0); HHb 4.1 % (0.0-5.0); MODE VENT - A/C; PCO2 43.2 mmHg (35.0-45.0); PCO2(T) 43.2 mmHg (35.0-45.0); PO2 91.9 mmHg (80.0-100.0); PO2(T) 91.9 mmHg (80.0-100.0); Sample Type Arterial; pH 7.418 (7.350-7.450)
[2017-01-28 08:58] LABS: CONDITION Y; DEFINITIVE SEE PRINTOUT; Hematocrit 38.2 % (36.0-46.0); Hemoglobin 12.3 g/dL (12.2-16.2); Mean Corpuscular Hemoglobin 25.8 pg (28.0-32.0); Mean Corpuscular Hgb Conc. 32.2 g/dL (32.0-36.0); Mean Corpuscular Volume 80.2 fL (80.0-100.0); Mean Platelet Volume 7.6 fL (7.4-10.4); Platelet Count (auto) 480 10^3/uL (140-450); SUSPECT SEE PRINTOUT; White Blood Cell 17.3 10^3/uL (4.4-10.8)
[2017-01-28 09:02] LABS: Red Cell Distribution Width 20.8 % (11.6-16.0)
[2017-01-28 09:03] LABS: Metamyelocytes % 0; Myelocytes % 0; Promyelocytes % 0; Reactive Lymphocytes 0
[2017-01-28 09:15] LABS: Anisocytosis Slight; Platelet Estimate Adequate
[2017-01-28] MEDS: ASPirin 81 mg TAB PO SCH (10:00)
[2017-01-28] MEDS: FERROUS SULFATE 325 MG TAB PO SCH (10:00)
[2017-01-28] MEDS: METOPROLOL TARTRATE 1MG/1ML-5ML VIAL IV PRN (10:05)
[2017-01-28] MEDS: ENOXAPARIN SOD 40 MG/0.4 ML SYRINGE SC SCH (10:06)
[2017-01-28] MEDS: PANTOPRAZOLE SODIUM 40 MG/10 ML VIAL IV SCH (10:06)
[2017-01-28] MEDS: LINEZOLID 600MG/300ML 300 ML IV SCH ×2 (10:19→22:13)
[2017-01-28] MEDS: DEXMEDETOMIDINE HCL 400 MCG in SODIUM CHL 0.9% 96 ML IV SCH (10:38)
[2017-01-28] MEDS: PROPOFOL 100 ML IV SCH (11:47)
[2017-01-28 12:03] LABS: INR 1.05 (0.9-1.15); Prothrombin Time 11.4 sec (9.37-12.3)
[2017-01-28] MEDS: NOREPINEPHRINE BITARTRATE 250 ML IV SCH (15:53)
[2017-01-28] MEDS: fentaNYL Drip 2500mCg/250mlNS 250 ML IV SCH (15:55)
[2017-01-28] MEDS: SODIUM CHLORIDE 0.9% 1,000 ML IV SCH ×2 (17:00→21:15)
[2017-01-28] MEDS ORDERED: LIDOCAINE 1% HCL (LOCAL ANESTH.) INJ 20ML MDV ID ONE (19:30)
[2017-01-28] MEDS: SODIUM CHLOR 0.9% PF (SALINE LOCK) 10ML VIAL IV SCH (22:11)
[2017-01-28] MEDS: ATORVASTATIN 20 MG TAB PO SCH (22:12)
[2017-01-29] VITALS (102 sets, daily range): BP systolic 79–178; BP diastolic 37–115
[2017-01-29] MEDS: IPRATROPIUM BROM 0.5 MG/2.5ML INH SOL NEB SCH ×4 (00:20→18:41)
[2017-01-29] MEDS: ALBUTEROL SULF 2.5 MG/0.5ML(0.5%) NEB SOLN NEB SCH ×4 (00:20→18:41)
[2017-01-29] MEDS: methylPREDNISolone SOD SUCC 40 MG/ML VL IV SCH ×3 (05:37→22:12)
[2017-01-29] MEDS: ACCU-CHEK COMFORT CURVE STRIP VI SCH ×4 (05:51→22:13)
[2017-01-29] MEDS: InsuLIN REG 1unit/0.01ml Soln (100units/ml) SC SCH ×4 (05:51→22:00)
[2017-01-29] MEDS: SODIUM CHLORIDE 0.9% 1,000 ML IV SCH ×2 (07:45→16:58)
[2017-01-29] MEDS: PROPOFOL 100 ML IV SCH (08:00)
[2017-01-29 08:55] LABS: Allen Test Yes; Base Excess 5.5 mmol/L (-2.0-2.0); Blood COHb 0.9 % (0.5-1.5); Blood MetHb 0.2 % (0.0-1.5); HCO3 30.4 mmol/L (22-26.0); HHb 5.9 % (0.0-5.0); MODE VENT - A/C; PCO2 45.7 mmHg (35.0-45.0); PCO2(T) 45.7 mmHg (35.0-45.0); PO2 74.9 mmHg (80.0-100.0); PO2(T) 74.9 mmHg (80.0-100.0); Sample Type Arterial; pH 7.441 (7.350-7.450)
[2017-01-29] MEDS: ENOXAPARIN SOD 40 MG/0.4 ML SYRINGE SC SCH (09:32)
[2017-01-29] MEDS: fentaNYL Drip 2500mCg/250mlNS 250 ML IV SCH (09:33)
[2017-01-29] MEDS: FERROUS SULFATE 325 MG TAB PO SCH (09:33)
[2017-01-29] MEDS: SODIUM CHLOR 0.9% PF (SALINE LOCK) 10ML VIAL IV SCH ×2 (09:33→22:13)
[2017-01-29] MEDS: ASPirin 81 mg TAB PO SCH (09:33)
[2017-01-29] MEDS: LINEZOLID 600MG/300ML 300 ML IV SCH ×2 (09:33→22:12)
[2017-01-29] MEDS: PANTOPRAZOLE SODIUM 40 MG/10 ML VIAL IV SCH (09:33)
[2017-01-29] MEDS: NOREPINEPHRINE BITARTRATE 250 ML IV SCH (11:56)
[2017-01-29] MEDS: MEROPENEM 1GM IVPB 100 ML IV SCH ×2 (12:02→20:00)
[2017-01-29] MEDS: DEXMEDETOMIDINE HCL 400 MCG in SODIUM CHL 0.9% 96 ML IV SCH (12:03)
[2017-01-29] MEDS: LABETALOL HCL 5 MG/ML 4ML SYRINGE IV PRN (19:13)
[2017-01-29] MEDS: ATORVASTATIN 20 MG TAB PO SCH (22:12)
[2017-01-30] VITALS (103 sets, daily range): BP systolic 85–194; BP diastolic 46–117
[2017-01-30] MEDS: ALBUTEROL SULF 2.5 MG/0.5ML(0.5%) NEB SOLN NEB SCH ×4 (00:38→18:31)
[2017-01-30] MEDS: IPRATROPIUM BROM 0.5 MG/2.5ML INH SOL NEB SCH ×4 (00:38→18:31)
[2017-01-30] MEDS: PROPOFOL 100 ML IV SCH ×2 (02:01→08:24)
[2017-01-30] MEDS: METOCLOPRAMIDE HCL 5MG/ml INJ 2ml VIAL IV PRN ×2 (02:12→14:28)
[2017-01-30] MEDS: LABETALOL HCL 5 MG/ML 4ML SYRINGE IV PRN ×2 (02:12→21:09)
[2017-01-30] MEDS: SODIUM CHLORIDE 0.9% 1,000 ML IV SCH ×3 (03:15→23:15)
[2017-01-30] MEDS: MEROPENEM 1GM IVPB 100 ML IV SCH ×3 (04:00→20:16)
[2017-01-30] MEDS: fentaNYL Drip 2500mCg/250mlNS 250 ML IV SCH ×3 (05:06→18:30)
[2017-01-30 05:26] LABS: Basophils # (auto) 0 uL; CONDITION Y; DEFINITIVE SEE PRINTOUT; Eosinophils # (auto) 0 uL; Eosinophils % (auto) 0.1 % (0.0-7.0); Hematocrit 33.1 % (36.0-46.0); Hemoglobin 10.6 g/dL (12.2-16.2); Lymphocytes # (auto) 0.4 uL; Lymphocytes % (auto) 2.6 % (10.0-50.0); Mean Corpuscular Hemoglobin 25.5 pg (28.0-32.0); Mean Corpuscular Hgb Conc. 31.9 g/dL (32.0-36.0); Mean Corpuscular Volume 79.8 fL (80.0-100.0); Mean Platelet Volume 7.7 fL (7.4-10.4); Monocytes # (auto) 0.3 uL; Monocytes % (auto) 2.2 % (0.0-12.0); Neutrophils # (auto) 14.5 uL; Neutrophils % (auto) 95.1 % (37.0-80.0); Platelet Count (auto) 401 10^3/uL (140-450); White Blood Cell 15.3 10^3/uL (4.4-10.8)
[2017-01-30 05:28] LABS: BUN/Creatinine Ratio 37.8; Calcium 7.4 mg/dL (8.5-10.1); Potassium 4.1 mmol/L (3.5-5.1)
[2017-01-30 05:31] LABS: Bilirubin, Total 0.3 mg/dL (0.2-1.0); Total Protein 5.5 g/dL (6.4-8.2)
[2017-01-30 05:37] LABS: Red Cell Distribution Width 20.8 % (11.6-16.0)
[2017-01-30] MEDS: methylPREDNISolone SOD SUCC 40 MG/ML VL IV SCH ×2 (06:14→22:06)
[2017-01-30] MEDS: InsuLIN REG 1unit/0.01ml Soln (100units/ml) SC SCH ×4 (06:15→22:00)
[2017-01-30] MEDS: ACCU-CHEK COMFORT CURVE STRIP VI SCH ×4 (06:15→22:07)
[2017-01-30 06:29] LABS: Anisocytosis Slight; Hypersegmented Neutrophils Present; Platelet Estimate Adequate
[2017-01-30 06:30] LABS: Hypochromia Slight; Microcytosis Slight
[2017-01-30 09:02] LABS: Allen Test Modified; Blood 02Sat 89.3 % (96-100); Blood COHb 1.6 % (0.5-1.5); Blood MetHb 0.2 % (0.0-1.5); HCO3 30.7 mmol/L (22-26.0); HHb 10.5 % (0.0-5.0); MODE VENT - A/C; O2Hb 87.7 % (94.0-97.0); PCO2 55.1 mmHg (35.0-45.0); PCO2(T) 55.1 mmHg (35.0-45.0); PIP 24; PO2 61.5 mmHg (80.0-100.0); PO2(T) 61.5 mmHg (80.0-100.0); Sample Type Arterial; pH 7.364 (7.350-7.450)
[2017-01-30] MEDS: PANTOPRAZOLE SODIUM 40 MG/10 ML VIAL IV SCH (09:44)
[2017-01-30] MEDS: LINEZOLID 600MG/300ML 300 ML IV SCH ×2 (09:44→22:06)
[2017-01-30] MEDS: ASPirin 81 mg TAB PO SCH (09:44)
[2017-01-30] MEDS: ENOXAPARIN SOD 40 MG/0.4 ML SYRINGE SC SCH (09:44)
[2017-01-30] MEDS: FERROUS SULFATE 325 MG TAB PO SCH (09:44)
[2017-01-30] MEDS: SODIUM CHLOR 0.9% PF (SALINE LOCK) 10ML VIAL IV SCH ×2 (09:44→22:06)
[2017-01-30] MEDS: DEXMEDETOMIDINE HCL 400 MCG in SODIUM CHL 0.9% 96 ML IV SCH (13:01)
[2017-01-30] MEDS: METOPROLOL TARTRATE 1MG/1ML-5ML VIAL IV PRN (17:12)
[2017-01-30] MEDS: ATORVASTATIN 20 MG TAB PO SCH (22:07)
[2017-01-31] VITALS (106 sets, daily range): BP systolic 75–198; BP diastolic 36–120
[2017-01-31] MEDS: ALBUTEROL SULF 2.5 MG/0.5ML(0.5%) NEB SOLN NEB SCH ×4 (00:28→19:08)
[2017-01-31] MEDS: IPRATROPIUM BROM 0.5 MG/2.5ML INH SOL NEB SCH ×4 (00:28→19:08)
[2017-01-31] MEDS: MEROPENEM 1GM IVPB 100 ML IV SCH ×3 (04:16→20:43)
[2017-01-31] MEDS: ACCU-CHEK COMFORT CURVE STRIP VI SCH ×4 (06:31→22:27)
[2017-01-31] MEDS: InsuLIN REG 1unit/0.01ml Soln (100units/ml) SC SCH ×4 (06:31→22:27)
[2017-01-31] MEDS: fentaNYL Drip 2500mCg/250mlNS 250 ML IV SCH (06:33)
[2017-01-31 07:55] LABS: Allen Test Yes; Base Excess 6.5 mmol/L (-2.0-2.0); Blood 02Sat 84.3 % (96-100); Blood COHb 1.7 % (0.5-1.5); Blood MetHb 0.2 % (0.0-1.5); HCO3 31.8 mmol/L (22-26.0); HHb 15.4 % (0.0-5.0); MODE VENT - A/C; O2Hb 82.7 % (94.0-97.0); PCO2 48.5 mmHg (35.0-45.0); PCO2(T) 48.5 mmHg (35.0-45.0); PO2 50.7 mmHg (80.0-100.0); PO2(T) 50.7 mmHg (80.0-100.0); Sample Type Arterial; pH 7.435 (7.350-7.450)
[2017-01-31] MEDS: DEXMEDETOMIDINE HCL 400 MCG in SODIUM CHL 0.9% 96 ML IV SCH ×2 (08:45→22:57)
[2017-01-31] MEDS: methylPREDNISolone SOD SUCC 40 MG/ML VL IV SCH ×2 (10:00→21:24)
[2017-01-31] MEDS: LINEZOLID 600MG/300ML 300 ML IV SCH ×2 (10:00→21:24)
[2017-01-31] MEDS: SODIUM CHLOR 0.9% PF (SALINE LOCK) 10ML VIAL IV SCH ×2 (10:30→21:24)
[2017-01-31] MEDS: FERROUS SULFATE 325 MG TAB PO SCH (10:30)
[2017-01-31] MEDS: PANTOPRAZOLE SODIUM 40 MG/10 ML VIAL IV SCH (10:30)
[2017-01-31] MEDS: ENOXAPARIN SOD 40 MG/0.4 ML SYRINGE SC SCH (10:30)
[2017-01-31] MEDS: SODIUM CHLORIDE 0.9% 1,000 ML IV SCH (10:43)
[2017-01-31] MEDS: ASPirin 81 mg TAB PO SCH (11:13)
[2017-01-31] MEDS ORDERED: fentaNYL CITRATE 100 MCG/2 ML VL IV ONE (12:00)
[2017-01-31] MEDS ORDERED: FUROSEMIDE 20 MG/2 ML VIAL IV ONE (15:15)
[2017-01-31] MEDS: LABETALOL HCL 5 MG/ML 4ML SYRINGE IV PRN (21:15)
[2017-01-31] MEDS: ATORVASTATIN 20 MG TAB PO SCH (21:24)
[2017-01-31] MEDS: METOPROLOL TARTRATE 25 MG TAB PO SCH (21:25)
[2017-02-01] VITALS (103 sets, daily range): BP systolic 71–208; BP diastolic 37–133
[2017-02-01] MEDS: SODIUM CHLORIDE 0.9% 1,000 ML IV SCH ×3 (02:14→20:00)
[2017-02-01] MEDS: fentaNYL CITRATE 100 MCG/2 ML VL IV PRN ×2 (03:27→05:30)
[2017-02-01] MEDS: MEROPENEM 1GM IVPB 100 ML IV SCH ×3 (04:00→20:00)
[2017-02-01 04:13] LABS: BUN/Creatinine Ratio 42.5; Calcium 7.8 mg/dL (8.5-10.1); Magnesium 1.9 mg/dL (1.6-2.6); Potassium 3.9 mmol/L (3.5-5.1)
[2017-02-01] MEDS: ACCU-CHEK COMFORT CURVE STRIP VI SCH ×4 (06:28→21:58)
[2017-02-01] MEDS: InsuLIN REG 1unit/0.01ml Soln (100units/ml) SC SCH ×4 (06:28→21:58)
[2017-02-01] MEDS: ALBUTEROL SULF 2.5 MG/0.5ML(0.5%) NEB SOLN NEB SCH ×4 (07:08→19:04)
[2017-02-01] MEDS: IPRATROPIUM BROM 0.5 MG/2.5ML INH SOL NEB SCH ×5 (07:08→22:15)
[2017-02-01 08:14] LABS: Base Excess 6.7 mmol/L (-2.0-2.0); Blood 02Sat 96.4 % (96-100); Blood COHb 1.7 % (0.5-1.5); Blood MetHb 0.1 % (0.0-1.5); HCO3 30.8 mmol/L (22-26.0); HHb 3.5 % (0.0-5.0); IE RATIO 1.3.9; MODE VENT - A/C; O2Hb 94.7 % (94.0-97.0); PCO2 41.7 mmHg (35.0-45.0); PCO2(T) 41.7 mmHg (35.0-45.0); PIP 28; PO2 90.2 mmHg (80.0-100.0); PO2(T) 90.2 mmHg (80.0-100.0); Sample Type Arterial; Spont Vt 641; pH 7.486 (7.350-7.450)
[2017-02-01] MEDS: ASPirin 81 mg TAB PO SCH (10:20)
[2017-02-01] MEDS: FERROUS SULFATE 325 MG TAB PO SCH (10:20)
[2017-02-01] MEDS: METOPROLOL TARTRATE 25 MG TAB PO SCH (10:21)
[2017-02-01] MEDS: PANTOPRAZOLE SODIUM 40 MG/10 ML VIAL IV SCH (10:21)
[2017-02-01] MEDS: methylPREDNISolone SOD SUCC 40 MG/ML VL IV SCH ×2 (10:21→21:58)
[2017-02-01] MEDS: ENOXAPARIN SOD 40 MG/0.4 ML SYRINGE SC SCH (10:21)
[2017-02-01] MEDS: LINEZOLID 600MG/300ML 300 ML IV SCH ×2 (10:22→21:58)
[2017-02-01] MEDS: SODIUM CHLOR 0.9% PF (SALINE LOCK) 10ML VIAL IV SCH ×2 (10:22→22:01)
[2017-02-01] MEDS: LABETALOL HCL 5 MG/ML 4ML SYRINGE IV PRN (12:11)
[2017-02-01] MEDS: PROPOFOL 100 ML IV SCH (12:30)
[2017-02-01] MEDS: fentaNYL Drip 2500mCg/250mlNS 250 ML IV SCH (15:18)
[2017-02-01] MEDS: ATORVASTATIN 20 MG TAB PO SCH (21:58)
[2017-02-01] MEDS: METOPROLOL TARTRATE 50 MG TAB PO SCH (21:58)
[2017-02-01] MEDS ORDERED: METOPROLOL TARTRATE 50 MG TAB PO SCH (22:00)
[2017-02-02] VITALS (106 sets, daily range): BP systolic 78–150; BP diastolic 44–90
[2017-02-02] MEDS: ALBUTEROL SULF 2.5 MG/0.5ML(0.5%) NEB SOLN NEB SCH ×4 (00:29→18:51)
[2017-02-02] MEDS: IPRATROPIUM BROM 0.5 MG/2.5ML INH SOL NEB SCH ×4 (00:29→18:51)
[2017-02-02] MEDS: PROPOFOL 100 ML IV SCH ×3 (00:45→22:45)
[2017-02-02] MEDS: MEROPENEM 1GM IVPB 100 ML IV SCH ×3 (04:00→20:00)
[2017-02-02 04:01] LABS: CONDITION Y; DEFINITIVE SEE PRINTOUT; Hematocrit 37.4 % (36.0-46.0); Hemoglobin 11.9 g/dL (12.2-16.2); Mean Corpuscular Hemoglobin 25.4 pg (28.0-32.0); Mean Corpuscular Hgb Conc. 31.7 g/dL (32.0-36.0); Mean Corpuscular Volume 80.1 fL (80.0-100.0); Mean Platelet Volume 7.7 fL (7.4-10.4); Platelet Count (auto) 407 10^3/uL (140-450); SUSPECT SEE PRINTOUT; White Blood Cell 25.7 10^3/uL (4.4-10.8)
[2017-02-02 04:06] LABS: Red Cell Distribution Width 20.7 % (11.6-16.0)
[2017-02-02 04:07] LABS: Metamyelocytes % 0; Myelocytes % 0; Promyelocytes % 0; Reactive Lymphocytes 0
[2017-02-02 04:12] LABS: BUN/Creatinine Ratio 52.8; Calcium 7.9 mg/dL (8.5-10.1); Magnesium 1.9 mg/dL (1.6-2.6); Potassium 4.1 mmol/L (3.5-5.1)
[2017-02-02 04:51] LABS: Anisocytosis Slight; Hypersegmented Neutrophils Present; Hypochromia Slight; Large Platelets FEW; Platelet Estimate Adequate; Stomatocytes Few
[2017-02-02] MEDS: InsuLIN REG 1unit/0.01ml Soln (100units/ml) SC SCH ×4 (06:39→22:30)
[2017-02-02] MEDS: ACCU-CHEK COMFORT CURVE STRIP VI SCH ×4 (06:39→21:54)
[2017-02-02 08:04] LABS: Base Excess 6.4 mmol/L (-2.0-2.0); Blood 02Sat 94.7 % (96-100); Blood COHb 0.8 % (0.5-1.5); Blood MetHb 0.1 % (0.0-1.5); HCO3 31.6 mmol/L (22-26.0); HHb 5.3 % (0.0-5.0); IE RATIO 1.3.9; MODE VENT - A/C; O2Hb 93.8 % (94.0-97.0); PCO2 47.8 mmHg (35.0-45.0); PCO2(T) 47.8 mmHg (35.0-45.0); PIP 22; PO2 83.6 mmHg (80.0-100.0); PO2(T) 83.6 mmHg (80.0-100.0); Sample Type Arterial; Spont Vt 403; pH 7.438 (7.350-7.450)
[2017-02-02] MEDS: SODIUM CHLOR 0.9% PF (SALINE LOCK) 10ML VIAL IV SCH ×2 (10:00→21:54)
[2017-02-02] MEDS: ENOXAPARIN SOD 40 MG/0.4 ML SYRINGE SC SCH (10:58)
[2017-02-02] MEDS: ASPirin 81 mg TAB PO SCH (10:58)
[2017-02-02] MEDS: PANTOPRAZOLE SODIUM 40 MG/10 ML VIAL IV SCH (10:58)
[2017-02-02] MEDS: methylPREDNISolone SOD SUCC 40 MG/ML VL IV SCH ×2 (10:58→21:54)
[2017-02-02] MEDS: LINEZOLID 600MG/300ML 300 ML IV SCH ×2 (10:59→23:10)
[2017-02-02] MEDS: FERROUS SULFATE 325 MG TAB PO SCH (10:59)
[2017-02-02] MEDS: METOPROLOL TARTRATE 50 MG TAB PO SCH ×3 (11:58→23:10)
[2017-02-02] MEDS: fentaNYL Drip 2500mCg/250mlNS 250 ML IV SCH (15:55)
[2017-02-02] MEDS: SODIUM CHLORIDE 0.9% 1,000 ML IV SCH (20:00)
[2017-02-02] MEDS: ATORVASTATIN 20 MG TAB PO SCH (21:54)
[2017-02-03] VITALS (106 sets, daily range): BP systolic 79–160; BP diastolic 41–100
[2017-02-03] MEDS: ALBUTEROL SULF 2.5 MG/0.5ML(0.5%) NEB SOLN NEB SCH ×4 (00:31→18:56)
[2017-02-03] MEDS: IPRATROPIUM BROM 0.5 MG/2.5ML INH SOL NEB SCH ×4 (00:31→18:56)
[2017-02-03 04:14] LABS: CONDITION Y; DEFINITIVE SEE PRINTOUT; Hematocrit 33.7 % (36.0-46.0); Hemoglobin 10.7 g/dL (12.2-16.2); Mean Corpuscular Hemoglobin 25.4 pg (28.0-32.0); Mean Corpuscular Hgb Conc. 31.8 g/dL (32.0-36.0); Mean Corpuscular Volume 79.8 fL (80.0-100.0); Mean Platelet Volume 7.5 fL (7.4-10.4); Platelet Count (auto) 355 10^3/uL (140-450); SUSPECT SEE PRINTOUT; White Blood Cell 23.8 10^3/uL (4.4-10.8)
[2017-02-03] MEDS: MEROPENEM 1GM IVPB 100 ML IV SCH ×4 (04:21→19:56)
[2017-02-03 04:30] LABS: BUN/Creatinine Ratio 58.8; Bilirubin, Total 0.2 mg/dL (0.2-1.0); Calcium 7.7 mg/dL (8.5-10.1); Total Protein 5.3 g/dL (6.4-8.2)
[2017-02-03 04:39] LABS: Red Cell Distribution Width 20.5 % (11.6-16.0)
[2017-02-03 04:40] LABS: Metamyelocytes % 0; Myelocytes % 0; Promyelocytes % 0; Reactive Lymphocytes 0
[2017-02-03 04:59] LABS: Burr Cells FEW; Ovalocytes FEW; Platelet Estimate Adequate
[2017-02-03 05:00] LABS: Anisocytosis Slight; Hypersegmented Neutrophils Present
[2017-02-03] MEDS: ACCU-CHEK COMFORT CURVE STRIP VI SCH ×4 (06:28→21:31)
[2017-02-03] MEDS: InsuLIN REG 1unit/0.01ml Soln (100units/ml) SC SCH ×4 (06:28→22:00)
[2017-02-03 08:57] LABS: Allen Test Modified; Base Excess 4.5 mmol/L (-2.0-2.0); Blood 02Sat 90.3 % (96-100); Blood COHb 0.7 % (0.5-1.5); Blood MetHb 0.1 % (0.0-1.5); HCO3 29.5 mmol/L (22-26.0); HHb 9.6 % (0.0-5.0); MODE VENT - A/C; O2Hb 89.6 % (94.0-97.0); PCO2 45.7 mmHg (35.0-45.0); PCO2(T) 45.7 mmHg (35.0-45.0); PO2 63.4 mmHg (80.0-100.0); PO2(T) 63.4 mmHg (80.0-100.0); Sample Type Arterial; pH 7.428 (7.350-7.450)
[2017-02-03] MEDS: PROPOFOL 100 ML IV SCH (09:59)
[2017-02-03] MEDS: SODIUM CHLOR 0.9% PF (SALINE LOCK) 10ML VIAL IV SCH ×2 (10:00→21:31)
[2017-02-03] MEDS: PANTOPRAZOLE SODIUM 40 MG/10 ML VIAL IV SCH (11:02)
[2017-02-03] MEDS: methylPREDNISolone SOD SUCC 40 MG/ML VL IV SCH ×2 (11:03→21:30)
[2017-02-03] MEDS: LINEZOLID 600MG/300ML 300 ML IV SCH ×2 (11:03→21:31)
[2017-02-03] MEDS: ENOXAPARIN SOD 40 MG/0.4 ML SYRINGE SC SCH (11:04)
[2017-02-03] MEDS: METOPROLOL TARTRATE 50 MG TAB PO SCH ×2 (11:04→21:30)
[2017-02-03] MEDS: ASPirin 81 mg TAB PO SCH (11:04)
[2017-02-03] MEDS: FERROUS SULFATE 325 MG TAB PO SCH (11:04)
[2017-02-03] MEDS: fentaNYL Drip 2500mCg/250mlNS 250 ML IV SCH (14:49)
[2017-02-03] MEDS: ATORVASTATIN 20 MG TAB PO SCH (21:30)
[2017-02-03] MEDS: SODIUM CHLORIDE 0.9% 1,000 ML IV SCH (23:58)
[2017-02-04] VITALS (79 sets, daily range): BP systolic 72–148; BP diastolic 41–89
[2017-02-04] MEDS: ALBUTEROL SULF 2.5 MG/0.5ML(0.5%) NEB SOLN NEB SCH ×4 (00:17→18:57)
[2017-02-04] MEDS: IPRATROPIUM BROM 0.5 MG/2.5ML INH SOL NEB SCH ×4 (00:17→18:57)
[2017-02-04] MEDS: PROPOFOL 100 ML IV SCH ×2 (02:20→23:42)
[2017-02-04 04:03] LABS: Basophils # (auto) 0 uL; Basophils % (auto) 0.1 % (0.0-2.0); CONDITION Y; DEFINITIVE SEE PRINTOUT; Eosinophils # (auto) 0 uL; Hematocrit 33.5 % (36.0-46.0); Hemoglobin 10.7 g/dL (12.2-16.2); Lymphocytes # (auto) 0.5 uL; Lymphocytes % (auto) 2.8 % (10.0-50.0); Mean Corpuscular Hemoglobin 25.8 pg (28.0-32.0); Mean Corpuscular Volume 80.7 fL (80.0-100.0); Mean Platelet Volume 7.7 fL (7.4-10.4); Monocytes # (auto) 0.4 uL; Monocytes % (auto) 2.2 % (0.0-12.0); Neutrophils # (auto) 18.2 uL; Neutrophils % (auto) 94.9 % (37.0-80.0); Platelet Count (auto) 283 10^3/uL (140-450); White Blood Cell 19.2 10^3/uL (4.4-10.8)
[2017-02-04] MEDS: MEROPENEM 1GM IVPB 100 ML IV SCH ×3 (04:17→20:40)
[2017-02-04 04:18] LABS: Red Cell Distribution Width 20.9 % (11.6-16.0)
[2017-02-04 04:30] LABS: Calcium 7.5 mg/dL (8.5-10.1); Potassium 4.2 mmol/L (3.5-5.1)
[2017-02-04 04:31] LABS: BUN/Creatinine Ratio 46.2
[2017-02-04 04:34] LABS: Bilirubin, Total 0.3 mg/dL (0.2-1.0); Total Protein 5.6 g/dL (6.4-8.2)
[2017-02-04] MEDS: ACCU-CHEK COMFORT CURVE STRIP VI SCH ×4 (06:47→22:25)
[2017-02-04] MEDS: InsuLIN REG 1unit/0.01ml Soln (100units/ml) SC SCH ×4 (06:47→23:18)
[2017-02-04 07:23] LABS: Anisocytosis Slight; Platelet Estimate Adequate
[2017-02-04 07:24] LABS: Hypochromia Slight; Microcytosis Slight
[2017-02-04 09:15] LABS: Allen Test Yes; Base Excess 1.6 mmol/L (-2.0-2.0); Blood 02Sat 89.4 % (96-100); Blood COHb 0.5 % (0.5-1.5); Blood MetHb 0.1 % (0.0-1.5); HHb 10.5 % (0.0-5.0); MODE VENT - A/C; O2Hb 88.9 % (94.0-97.0); PCO2 40.4 mmHg (35.0-45.0); PCO2(T) 40.4 mmHg (35.0-45.0); PO2 62.5 mmHg (80.0-100.0); PO2(T) 62.5 mmHg (80.0-100.0); Sample Type Arterial; Spont Vt 374; pH 7.427 (7.350-7.450)
[2017-02-04 09:21] LABS: Temperature: 24.1 C (20.0-25.0)
[2017-02-04] MEDS: PANTOPRAZOLE SODIUM 40 MG/10 ML VIAL IV SCH (09:49)
[2017-02-04] MEDS: ASPirin 81 mg TAB PO SCH (09:50)
[2017-02-04] MEDS: methylPREDNISolone SOD SUCC 40 MG/ML VL IV SCH ×2 (09:50→23:18)
[2017-02-04] MEDS: LINEZOLID 600MG/300ML 300 ML IV SCH ×2 (09:50→23:20)
[2017-02-04] MEDS: SODIUM CHLOR 0.9% PF (SALINE LOCK) 10ML VIAL IV SCH ×2 (09:50→22:24)
[2017-02-04] MEDS: FERROUS SULFATE 325 MG TAB PO SCH (09:51)
[2017-02-04] MEDS: METOPROLOL TARTRATE 50 MG TAB PO SCH ×2 (09:52→22:00)
[2017-02-04] MEDS: ENOXAPARIN SOD 40 MG/0.4 ML SYRINGE SC SCH (09:52)
[2017-02-04] MEDS ORDERED: ACETAMINOPHEN 500 MG TAB PO PRN (10:45)
[2017-02-04] MEDS ORDERED: LACTULOSE 20Gm/30ML SOLN PO PRN (10:45)
[2017-02-04] MEDS ORDERED: ALBUTEROL SULF 2.5 MG/0.5ML(0.5%) NEB SOLN NEB PRN (10:45)
[2017-02-04] MEDS ORDERED: PROMETHAZINE HCL 25 MG/ML 1ML IV PRN (10:45)
[2017-02-04] MEDS ORDERED: DEXTROSE (50%) 50ML SYRG IV PRN (10:45)
[2017-02-04] MEDS: fentaNYL Drip 2500mCg/250mlNS 250 ML IV SCH (15:55)
[2017-02-04] MEDS: SODIUM CHLORIDE 0.9% 1,000 ML IV SCH (19:58)
[2017-02-04] MEDS: Diabetisource AC 1 Liter GT SCH (22:23)
[2017-02-04] MEDS: ATORVASTATIN 20 MG TAB PO SCH (23:20)
[2017-02-05] VITALS (109 sets, daily range): BP systolic 62–186; BP diastolic 27–130
[2017-02-05] MEDS: ALBUTEROL SULF 2.5 MG/0.5ML(0.5%) NEB SOLN NEB SCH ×4 (00:14→19:03)
[2017-02-05] MEDS: IPRATROPIUM BROM 0.5 MG/2.5ML INH SOL NEB SCH ×4 (00:15→19:03)
[2017-02-05] MEDS: InsuLIN REG 1unit/0.01ml Soln (100units/ml) SC SCH ×4 (00:30→17:00)
[2017-02-05] MEDS: MEROPENEM 1GM IVPB 100 ML IV SCH ×3 (03:29→20:05)
[2017-02-05 03:53] LABS: CONDITION Y; DEFINITIVE SEE PRINTOUT; Hematocrit 31.8 % (36.0-46.0); Hemoglobin 10.2 g/dL (12.2-16.2); Mean Corpuscular Hemoglobin 25.4 pg (28.0-32.0); Mean Corpuscular Hgb Conc. 32.1 g/dL (32.0-36.0); Mean Corpuscular Volume 79.1 fL (80.0-100.0); Mean Platelet Volume 7.7 fL (7.4-10.4); Platelet Count (auto) 254 10^3/uL (140-450); SUSPECT SEE PRINTOUT; White Blood Cell 23.2 10^3/uL (4.4-10.8)
[2017-02-05 04:08] LABS: Red Cell Distribution Width 20.9 % (11.6-16.0)
[2017-02-05 04:09] LABS: Metamyelocytes % 0; Myelocytes % 0; Promyelocytes % 0; Reactive Lymphocytes 0
[2017-02-05 04:42] LABS: Anisocytosis Slight; Hypersegmented Neutrophils Present; Hypochromia Slight; Microcytosis Slight; Platelet Estimate Adequate
[2017-02-05 05:43] LABS: BUN/Creatinine Ratio 51.9; Calcium 7.6 mg/dL (8.5-10.1); Potassium 3.8 mmol/L (3.5-5.1)
[2017-02-05] MEDS: ACCU-CHEK COMFORT CURVE STRIP VI SCH ×3 (05:49→17:00)
[2017-02-05] MEDS: PROPOFOL 100 ML IV SCH (06:49)
[2017-02-05 07:28] LABS: Base Excess 2.6 mmol/L (-2.0-2.0); Blood 02Sat 90.8 % (96-100); Blood COHb 0.9 % (0.5-1.5); Blood MetHb 0.2 % (0.0-1.5); HCO3 26.6 mmol/L (22-26.0); HHb 9.1 % (0.0-5.0); MODE VENT - A/C; O2Hb 89.8 % (94.0-97.0); PCO2 38.7 mmHg (35.0-45.0); PCO2(T) 38.7 mmHg (35.0-45.0); PO2 61.1 mmHg (80.0-100.0); PO2(T) 61.1 mmHg (80.0-100.0); Sample Type Arterial; pH 7.455 (7.350-7.450)
[2017-02-05] MEDS: PANTOPRAZOLE SODIUM 40 MG/10 ML VIAL IV SCH (09:45)
[2017-02-05] MEDS: SODIUM CHLOR 0.9% PF (SALINE LOCK) 10ML VIAL IV SCH ×2 (09:45→21:33)
[2017-02-05] MEDS: ASPirin 81 mg TAB PO SCH (09:46)
[2017-02-05] MEDS: FERROUS SULFATE 325 MG TAB PO SCH (09:46)
[2017-02-05] MEDS: LINEZOLID 600MG/300ML 300 ML IV SCH (09:46)
[2017-02-05] MEDS: methylPREDNISolone SOD SUCC 40 MG/ML VL IV SCH (09:47)
[2017-02-05] MEDS: METOPROLOL TARTRATE 50 MG TAB PO SCH ×2 (09:47→22:00)
[2017-02-05] MEDS: ENOXAPARIN SOD 40 MG/0.4 ML SYRINGE SC SCH (09:47)
[2017-02-05] MEDS: METOCLOPRAMIDE HCL 5MG/ml INJ 2ml VIAL IV PRN (09:49)
[2017-02-05] MEDS ORDERED: MAGNESIUM SULFATE 1GM/100ML 100 ML IV ONE (11:30)
[2017-02-05] MEDS: DEXMEDETOMIDINE HCL 400 MCG in SODIUM CHL 0.9% 96 ML IV SCH (11:30)
[2017-02-05] MEDS: fentaNYL CITRATE 100 MCG/2 ML VL IV PRN ×2 (19:31→20:06)
[2017-02-05] MEDS: fentaNYL Drip 2500mCg/250mlNS 250 ML IV SCH (21:32)
[2017-02-06] VITALS (107 sets, daily range): BP systolic 69–136; BP diastolic 31–84
[2017-02-06] MEDS: IPRATROPIUM BROM 0.5 MG/2.5ML INH SOL NEB SCH ×4 (00:17→18:52)
[2017-02-06] MEDS: ALBUTEROL SULF 2.5 MG/0.5ML(0.5%) NEB SOLN NEB SCH ×4 (00:17→18:52)
[2017-02-06] MEDS: LINEZOLID 600MG/300ML 300 ML IV SCH ×3 (00:30→23:31)
[2017-02-06] MEDS: ACCU-CHEK COMFORT CURVE STRIP VI SCH ×5 (00:30→22:00)
[2017-02-06] MEDS: ATORVASTATIN 20 MG TAB PO SCH (00:30)
[2017-02-06] MEDS ORDERED: PHENYLEPHRINE IV 250 ML IV ONE (00:55)
[2017-02-06] MEDS: PHENYLEPHRINE INJ 20 MG in SODIUM CHL 0.9% 250 ML IV SCH ×3 (00:58→16:55)
[2017-02-06] MEDS: DEXMEDETOMIDINE HCL 400 MCG in SODIUM CHL 0.9% 96 ML IV SCH (01:00)
[2017-02-06] MEDS: PROPOFOL 100 ML IV SCH ×2 (01:00→08:54)
[2017-02-06 02:43] LABS: Basophils # (auto) 0 uL; Basophils % (auto) 0.1 % (0.0-2.0); CONDITION Y; DEFINITIVE SEE PRINTOUT; Eosinophils # (auto) 0.1 uL; Eosinophils % (auto) 0.7 % (0.0-7.0); Hematocrit 30.4 % (36.0-46.0); Hemoglobin 9.5 g/dL (12.2-16.2); Lymphocytes # (auto) 1.3 uL; Lymphocytes % (auto) 6.7 % (10.0-50.0); Mean Corpuscular Hemoglobin 25.1 pg (28.0-32.0); Mean Corpuscular Hgb Conc. 31.4 g/dL (32.0-36.0); Mean Corpuscular Volume 80.1 fL (80.0-100.0); Monocytes # (auto) 1.5 uL; Monocytes % (auto) 7.6 % (0.0-12.0); Neutrophils # (auto) 16.9 uL; Neutrophils % (auto) 84.9 % (37.0-80.0); Platelet Count (auto) 249 10^3/uL (140-450); White Blood Cell 19.9 10^3/uL (4.4-10.8)
[2017-02-06 02:49] LABS: Red Cell Distribution Width 20.4 % (11.6-16.0)
[2017-02-06] MEDS: MEROPENEM 1GM IVPB 100 ML IV SCH ×3 (04:00→20:30)
[2017-02-06 05:16] LABS: Anisocytosis Slight; Hypersegmented Neutrophils Present; Hypochromia Slight; Microcytosis Slight; Platelet Estimate Adequate
[2017-02-06 05:43] LABS: BUN/Creatinine Ratio 32.4; Calcium 7.2 mg/dL (8.5-10.1); Potassium 3.5 mmol/L (3.5-5.1)
[2017-02-06] MEDS: InsuLIN REG 1unit/0.01ml Soln (100units/ml) SC SCH ×4 (05:48→22:00)
[2017-02-06 07:51] LABS: Allen Test Yes; Base Excess 3.5 mmol/L (-2.0-2.0); Blood 02Sat 95.4 % (96-100); Blood COHb 0.5 % (0.5-1.5); Blood MetHb 0.3 % (0.0-1.5); HCO3 29.4 mmol/L (22-26.0); HHb 4.6 % (0.0-5.0); MODE VENT - A/C; O2Hb 94.6 % (94.0-97.0); PCO2 50.7 mmHg (35.0-45.0); PCO2(T) 50.7 mmHg (35.0-45.0); PO2 91.6 mmHg (80.0-100.0); PO2(T) 91.6 mmHg (80.0-100.0); Sample Type Arterial; pH 7.381 (7.350-7.450)
[2017-02-06] MEDS: METOCLOPRAMIDE HCL 5MG/ml INJ 2ml VIAL IV PRN (08:54)
[2017-02-06] MEDS: METOPROLOL TARTRATE 50 MG TAB PO SCH (10:00)
[2017-02-06] MEDS: PANTOPRAZOLE SODIUM 40 MG/10 ML VIAL IV SCH (10:07)
[2017-02-06] MEDS: methylPREDNISolone SOD SUCC 40 MG/ML VL IV SCH (10:07)
[2017-02-06] MEDS: ASPirin 81 mg TAB PO SCH (10:08)
[2017-02-06] MEDS: FERROUS SULFATE 325 MG TAB PO SCH (10:08)
[2017-02-06] MEDS: ENOXAPARIN SOD 40 MG/0.4 ML SYRINGE SC SCH (10:08)
[2017-02-06] MEDS: SODIUM CHLOR 0.9% PF (SALINE LOCK) 10ML VIAL IV SCH ×2 (10:09→22:00)
[2017-02-06] MEDS ORDERED: METOCLOPRAMIDE HCL 5MG/ml INJ 2ml VIAL IV PRN (14:15)
[2017-02-06] MEDS: fentaNYL Drip 2500mCg/250mlNS 250 ML IV SCH (15:55)
[2017-02-06] MEDS ORDERED: ALBUMIN 25% 100 ML IV ONE (22:45)
[2017-02-07] VITALS (54 sets, daily range): BP systolic 51–158; BP diastolic 29–98
[2017-02-07] MEDS: ATORVASTATIN 20 MG TAB PO SCH
[2017-02-07] MEDS: IPRATROPIUM BROM 0.5 MG/2.5ML INH SOL NEB SCH ×2 (00:20→06:00)
[2017-02-07] MEDS: ALBUTEROL SULF 2.5 MG/0.5ML(0.5%) NEB SOLN NEB SCH ×2 (00:20→06:00)
[2017-02-07] MEDS: PHENYLEPHRINE INJ 20 MG in SODIUM CHL 0.9% 250 ML IV SCH ×2 (02:15→10:14)
[2017-02-07] MEDS ORDERED: PHENYLEPHRINE IV 250 ML IV ONE ×2 (02:25→06:20)
[2017-02-07 03:06] LABS: Allen Test Modified; Base Excess -1.3 mmol/L (-2.0-2.0); Blood COHb 0.3 % (0.5-1.5); Blood MetHb 0.3 % (0.0-1.5); HCO3 24.7 mmol/L (22-26.0); MODE VENT - A/C; O2Hb 96.4 % (94.0-97.0); PO2 120.3 mmHg (80.0-100.0); PO2(T) 117.2 mmHg (80.0-100.0); Sample Type Arterial; pH 7.338 (7.350-7.450)
[2017-02-07] MEDS ORDERED: ATROPINE SULF 0.5 MG/5ML SYR ONE (03:45)
[2017-02-07] MEDS ORDERED: NOREPINEPHRINE BITARTRATE 250 ML IV ONE (03:55)
[2017-02-07 03:59] LABS: Basophils # (auto) 0 uL; Basophils % (auto) 0.2 % (0.0-2.0); CONDITION Y; DEFINITIVE SEE PRINTOUT; Eosinophils # (auto) 0.1 uL; Eosinophils % (auto) 0.3 % (0.0-7.0); Hematocrit 31.5 % (36.0-46.0); Hemoglobin 9.7 g/dL (12.2-16.2); Lymphocytes # (auto) 5.8 uL; Lymphocytes % (auto) 29.4 % (10.0-50.0); Mean Corpuscular Hemoglobin 26.1 pg (28.0-32.0); Mean Corpuscular Hgb Conc. 30.8 g/dL (32.0-36.0); Mean Corpuscular Volume 84.6 fL (80.0-100.0); Mean Platelet Volume 8.4 fL (7.4-10.4); Monocytes # (auto) 1.8 uL; Monocytes % (auto) 9.2 % (0.0-12.0); Neutrophils % (auto) 60.9 % (37.0-80.0); Platelet Count (auto) 153 10^3/uL (140-450); White Blood Cell 19.7 10^3/uL (4.4-10.8)
[2017-02-07] MEDS ORDERED: NOREPINEPHRINE BITARTRATE 250 ML IV SCH (04:00)
[2017-02-07 04:01] LABS: Red Cell Distribution Width 21.1 % (11.6-16.0)
[2017-02-07] MEDS ORDERED: EPINEPHrine HCL 250 ML IV ONE (04:09)
[2017-02-07 04:28] LABS: Magnesium 2.2 mg/dL (1.6-2.6)
[2017-02-07] MEDS: MEROPENEM 1GM IVPB 100 ML IV SCH (04:30)
[2017-02-07 04:56] LABS: Anisocytosis Moderate; Microcytosis Slight
[2017-02-07 04:57] LABS: Hypersegmented Neutrophils Present; Hypochromia Slight; Platelet Estimate Adequate
[2017-02-07 05:23] LABS: B-Type Natriuretic Peptide 674.37 pg/mL (0-100)
[2017-02-07 05:29] LABS: Temperature: 21.3 C (20.0-25.0)
[2017-02-07 06:31] LABS: Albumin 2.2 g/dL (3.4-5.0); BUN/Creatinine Ratio 17.4; Bilirubin, Total 0.9 mg/dL (0.2-1.0); Calcium 7.1 mg/dL (8.5-10.1); Potassium 3.3 mmol/L (3.5-5.1); Total Protein 4.9 g/dL (6.4-8.2)
[2017-02-07] MEDS: InsuLIN REG 1unit/0.01ml Soln (100units/ml) SC SCH ×2 (07:00→11:30)
[2017-02-07] MEDS: ACCU-CHEK COMFORT CURVE STRIP VI SCH ×2 (07:03→11:59)
[2017-02-07] MEDS ORDERED: POTASSIUM CHL 20MEQ/100ML 100 ML IV ONE (07:15)
[2017-02-07 08:30] LABS: Allen Test Yes; Base Excess -7.4 mmol/L (-2.0-2.0); Blood 02Sat 93.6 % (96-100); Blood COHb 0.1 % (0.5-1.5); Blood MetHb 0.3 % (0.0-1.5); HCO3 21.2 mmol/L (22-26.0); HHb 6.4 % (0.0-5.0); MODE VENT - A/C; O2Hb 93.2 % (94.0-97.0); PCO2 58.8 mmHg (35.0-45.0); PCO2(T) 56.3 mmHg (35.0-45.0); PO2 98.5 mmHg (80.0-100.0); PO2(T) 92.7 mmHg (80.0-100.0); Sample Type Arterial; pH 7.175 (7.350-7.450)
[2017-02-07] MEDS ORDERED: FUROSEMIDE 40 MG/4 ML VIAL IV ONE (09:00)
[2017-02-07] MEDS: LINEZOLID 600MG/300ML 300 ML IV SCH (09:17)
[2017-02-07] MEDS: PANTOPRAZOLE SODIUM 40 MG/10 ML VIAL IV SCH (09:17)
[2017-02-07] MEDS: ASPirin 81 mg TAB PO SCH (09:17)
[2017-02-07] MEDS: DOPamine 1600MCG/ML 250 ML IV SCH ×2 (09:18→10:12)
[2017-02-07] MEDS: ENOXAPARIN SOD 40 MG/0.4 ML SYRINGE SC SCH (09:18)
[2017-02-07] MEDS: METOPROLOL TARTRATE 50 MG TAB PO SCH ×2 (09:19)
[2017-02-07] MEDS: SODIUM CHLOR 0.9% PF (SALINE LOCK) 10ML VIAL IV SCH (09:19)
[2017-02-07] MEDS: FERROUS SULFATE 325 MG TAB PO SCH (10:00)
[2017-02-07] MEDS: methylPREDNISolone SOD SUCC 40 MG/ML VL IV SCH (10:13)
[2017-02-07] MEDS ORDERED: FLUCONAZOLE 200MG/100ML 100 ML IV ONE (10:45)
[2017-02-07] MEDS: DEXMEDETOMIDINE HCL 400 MCG in SODIUM CHL 0.9% 96 ML IV SCH (11:30)
[2017-02-07 11:38] LABS: Lactic Acid w/Reflex 6.2 mmol/L (0.4-2.0)
[2017-02-07] MEDS ORDERED: COLISTIMETHATE SODIUM IV SCH (12:00)
[2017-02-07] MEDS ORDERED: STERILE WATER IV SCH (12:00)
[2017-02-07 12:11] LABS: REFLEX LACTIC ACID YES OR NO YES
[2017-02-07 12:36] LABS: Allen Test Yes; Base Excess -10.7 mmol/L (-2.0-2.0); Blood 02Sat 89.1 % (96-100); Blood COHb 0.4 % (0.5-1.5); Blood MetHb 0.2 % (0.0-1.5); HCO3 17.2 mmol/L (22-26.0); HHb 10.8 % (0.0-5.0); MODE VENT - A/C; O2Hb 88.6 % (94.0-97.0); PO2 72.1 mmHg (80.0-100.0); PO2(T) 72.1 mmHg (80.0-100.0); Sample Type Arterial; pH 7.182 (7.350-7.450)
[2017-02-07] MEDS ORDERED: MORPHINE SULF INJ 2 MG/ML SYRINGE 1ML IV PRN (13:00)
[2017-02-07] MEDS ORDERED: LORazepam 2MG/ML-1ML VIAL IV PRN ×2 (13:00)
[2017-02-07] MEDS ORDERED: fentaNYL Drip 2500mCg/250mlNS 250 ML IV SCH (15:55)
[2017-02-07] MEDS ORDERED: methylPREDNISolone SOD SUCC 40 MG/ML VL IV SCH (22:00)
[2017-02-08] MEDS ORDERED: FLUCONAZOLE 200MG/100ML 100 ML IV SCH (10:00)
[2017-02-08] MEDS ORDERED: ENOXAPARIN SOD 40 MG/0.4 ML SYRINGE SC SCH (10:00)
== END 2017-02-07 18:40 | disposition expired | DRG 870 ==
LOC: EDBD 03:45 → ER 03:45 → TELE 03:46 → TELE-WESTW 17:56 → ICU WEST 01-21 13:24
PROVIDERS: ADMIT Internal Medicine; ATTEND Internal Medicine
PROC: 5A1955Z Respiratory Ventilation, Greater than 96 Consecutive Hours (ICD-10-PCS; 2017-01-21)
PROC: 0BH17EZ Insertion of Endotracheal Airway into Trachea, Via Natural or Artificial Opening (ICD-10-PCS; 2017-01-21)
PROC: 0CJS8ZZ Inspection of Larynx, Via Natural or Artificial Opening Endoscopic (ICD-10-PCS; 2017-01-21)
PROC: 02HV33Z Insertion of Infusion Device into Superior Vena Cava, Percutaneous Approach (ICD-10-PCS; principal; 2017-01-28)
PROC: 02WAX3Z Revision of Infusion Device in Heart, External Approach (ICD-10-PCS; 2017-02-04)
PROC: 5A12012 Performance of Cardiac Output, Single, Manual (ICD-10-PCS; 2017-02-04)
DX: A41.9 Sepsis, unspecified organism (principal); E43 Unspecified severe protein-calorie malnutrition; J18.9 Pneumonia, unspecified organism; J96.22 Acute and chronic respiratory failure with hypercapnia; J96.21 Acute and chronic respiratory failure with hypoxia; R65.21 Severe sepsis with septic shock; G93.41 Metabolic encephalopathy; J44.0 Chronic obstructive pulmonary disease with (acute) lower respiratory infection; J44.1 Chronic obstructive pulmonary disease with (acute) exacerbation; I50.32 Chronic diastolic (congestive) heart failure; E87.4 Mixed disorder of acid-base balance; G93.1 Anoxic brain damage, not elsewhere classified; D53.9 Nutritional anemia, unspecified; D50.9 Iron deficiency anemia, unspecified; I11.0 Hypertensive heart disease with heart failure; D63.8 Anemia in other chronic diseases classified elsewhere; E09.65 Drug or chemical induced diabetes mellitus with hyperglycemia; I27.2 Other secondary pulmonary hypertension; I46.9 Cardiac arrest, cause unspecified; I67.2 Cerebral atherosclerosis; Z51.5 Encounter for palliative care; T38.0X5A Adverse effect of glucocorticoids and synthetic analogues, initial encounter; J84.10 Pulmonary fibrosis, unspecified; K21.9 Gastro-esophageal reflux disease without esophagitis; B95.62 Methicillin resistant Staphylococcus aureus infection as the cause of diseases classified elsewhere; Z82.3 Family history of stroke; Z82.49 Family history of ischemic heart disease and other diseases of the circulatory system; Z83.3 Family history of diabetes mellitus; Z82.5 Family history of asthma and other chronic lower respiratory diseases; Z79.52 Long term (current) use of systemic steroids; Z87.891 Personal history of nicotine dependence; Z80.9 Family history of malignant neoplasm, unspecified; Z90.710 Acquired absence of both cervix and uterus; Z91.011 Allergy to milk products; Z68.27 Body mass index [BMI] 27.0-27.9, adult
CPT/HCPCS: 36415; 36569; 36600; 70450; 71010; 71020; 80048; 80053; 80061; 80307; 81001; 82550; 82607; 82746; 82805; 82962; 83036; 83605; 83735; 83880; 84100; 84132; 84443; 84484; 85007; 85025; 85027; 85379; 85610; 85652; 86141; 87040; 87070; 87077; 87081; 87086; 87147; 87186; 87205; 87493; 93005; 94002; 94003; 94640; 95819; 96374; C9113; J0171; J0461; J0696; J1450; J1815; J2185; J2543; J2704; J3010; J3480; J3490; J7060